=== PATIENT | female | born 2000 | race Caucasian/White ===

== ENCOUNTER 2019-08-07 18:09 | Emergency (ER) | payer BC, SELFPAY ==
[2019-08-07 18:49] VITALS: BP 108/60; PULSE 90; RESP 24; TEMP 37.7; O2SAT 100
--- NOTE | 2019-08-07 19:28 | ED.URI ---
HPI - URI/Sore Throat General Chief Complaint: Upper Respiratory Infection Stated Complaint: sore throat/ear pain Time Seen by Provider: 08/07/19 19:21 Source: patient and RN notes reviewed Mode of arrival: ambulatory Limitations: no limitations History of Present Illness HPI Narrative: Patient presents today with a 2-day history of cough with sore throat, congestion, rhinorrhea, and bilateral ear pain since last night.She currently rates her pain 8/10 and has been taking no usrd-htp-[id number] medication for pain prior to arrival.Denies any additional symptoms. MD elicited complaint: cough and sore throat Related Data Home Medications Medication Instructions Recorded Confirmed No Home Medications 08/07/19 08/07/19 Allergies Allergy/AdvReac Type Severity Reaction Status Date / Time No Known Allergies Allergy Verified 08/07/19 19:20 Review of Systems Review of Systems: Narrative: CONSTITUTIONAL: Denies body aches, fever, chills, or sweats. EYES: Denies visual changes, redness, or discharge. ENT: +Congestion, rhinorrhea, bilateral ear pain, sore throat CARDIOVASCULAR: Denies chest pain, palpitations, or edema. RESPIRATORY: Denies dyspnea.+Cough GASTROINTESTINAL: Denies abdominal pain, nausea, vomiting, or diarrhea. GENITOURINARY: Denies dysuria or hematuria. SKIN: Denies rash, itching, or wounds. MUSCULOSKELETAL: Denies back pain, joint pain, or myalgia. NEUROLOGIC: Denies headache, numbness, tingling, or weakness. PSYCH: Denies depression or anxiety. PMFSH Comments At time of signature, I have reviewed and agree with nursing past medical, surgical, social and family history unless otherwise noted. Please see nursing chart for further information. There is no relevant family history pertinent to the presenting complaint Exam Narrative: Exam Narrative: GENERAL: Well-appearing, well-nourished, and in no acute distress. HEAD: Normocephalic, atraumatic. EYES: EOMI. No redness or drainage. Conjunctivae normal. ENT: Mucous membranes pink and moist. Nares clear. No rhinorrhea. TMs normal bilaterally. Throat normal. Uvula midline. NECK: Normal AROM. Supple. No lymphadenopathy. CHEST: No respiratory distress. Clear to auscultation. HEART: Regular rate and rhythm. No murmur appreciated. Normal peripheral pulses. EXTREMITIES: Normal range of motion. No edema. SKIN: Warm, dry, no rash. NEURO: No focal deficits. Alert and oriented x3. Gait steady. PSYCH: Normal affect. No signs of depression or anxiety. Course Vital Signs Vital signs: Vital Signs Temperature 99.8 F H 08/07/19 18:49 Pulse Rate 90 08/07/19 18:49 Respiratory Rate 24 H 08/07/19 18:49 Blood Pressure 108/60 08/07/19 18:49 Pulse Oximetry 100 08/07/19 18:49 Temperature 99.8 F H 08/07/19 18:49 Pulse Rate 90 08/07/19 18:49 Respiratory Rate 24 H 08/07/19 18:49 Blood Pressure 108/60 08/07/19 18:49 Pulse Oximetry 100 08/07/19 18:49 Reviewed MDM - URI/Sore Throat Differential Diagnosis Differential diagnosis: Likely upper respiratory infection, otitis media, sinusitis, viral infection, bronchitis, influenza and other (Strep throat) Lab Data Attestation: I reviewed the patient's lab results. Labs: Strep Screen Presumptive Negative *(Reference Range: Negative)* Critical Care Time Critical Care Time Critical Care Time: No Discharge Plan Discharge Clinical Impression: Upper respiratory infection Qualifiers: URI type: unspecified URI Qualified Code(s): J06.9 - Acute upper respiratory infection, unspecified Patient Disposition: Home, Self-Care Condition: Stable Instructions: Upper Respiratory Infection (DC) Additional Instructions: Your rapid strep swab was negative today at [facility]. You will be notified in a few days if the culture comes back positive for strep, and appropriate antibiotics will be called in for you at that time. Your symptoms are likely due to a viral il
== END 2019-08-07 19:32 | disposition home or self-care (01) ==
PROVIDERS: Emergency Provider Nurse Practitioner
DX: J06.9 Acute upper respiratory infection, unspecified (principal)
CPT/HCPCS: 87081; 87880; 99203; G0463

== ENCOUNTER 2020-01-29 11:40 | Emergency (ER) | payer BC, SELFPAY ==
--- NOTE | 2020-01-29 12:06 | ED.GENADULT ---
HPI - General Adult General Stated complaint: hot & cold and migraine Time Seen by Provider: 01/29/20 12:07 Source: patient Mode of arrival: ambulatory Limitations: no limitations Related Data Home Medications Medication Instructions Recorded Confirmed No Home Medications 08/07/19 08/07/19 Allergies Allergy/AdvReac Type Severity Reaction Status Date / Time No Known Allergies Allergy Verified 08/07/19 19:20 Review of Systems Review of Systems: Narrative: CONSTITUTIONAL: Denies fever, chills, or sweats. EYES: Denies visual changes, redness, or discharge. ENT: Denies rhinorrhea, congestion, sore throat, or otalgia. CARDIOVASCULAR: Denies chest pain, palpitations, or edema. RESPIRATORY: Denies cough or dyspnea. GASTROINTESTINAL: Denies abdominal pain, nausea, vomiting, or diarrhea. GENITOURINARY: Denies dysuria or hematuria. SKIN: Denies rash or itching. MUSCULOSKELETAL: Denies back pain, joint pain, or myalgia. NEUROLOGIC: Denies headache, numbness, or weakness. PSYCHIATRIC: Denies anxiety or depression. PMFSH Comments At the time of my signature I agree with nursing past medical history, surgical, social, and family history. There is no relevant family history pertinent to the presenting complaint. Exam Narrative: Exam Narrative: GENERAL: Well-appearing, well-nourished, and in no acute distress. HEAD: Normocephalic, atraumatic. EYES: PERRLA and EOMI. ENT: Nares clear, no rhinorrhea or epistaxis. Mucous membranes moist. NECK: Supple. No lymphadenopathy CHEST: Clear to auscultation. No respiratory distress. HEART: Regular rate and rhythm. No murmur heard. Normal peripheral pulses. ABDOMEN: Soft, nontender, nondistended, normal active bowel sounds. EXTREMITIES: Normal range of motion. No edema. SKIN: Warm, dry, no rash. NEURO: No focal deficits. Alert and oriented x3. Medical Decision Making Differential Diagnosis Differential Diagnosis: Differential diagnosis: Migraine, cluster headache, tension headache, sinusitis, dental infection, TMJ problems, pseudotumor cerebri, meningitis, encephalitis, giant cell arteritis, glaucoma, subarachnoid hemorrhage, subdural or epidural hematoma, intracranial bleed or tumor. Critical Care Time Critical Care Time Critical Care Time: No Discharge Plan Discharge Prescriptions: No Action No Home Medications RF: 0
== END 2020-01-29 12:19 | disposition left against medical advice (07) ==
LOC: EXPBETH 11:48
PROVIDERS: Emergency Provider Nurse Practitioner Family
DX: Z53.21 Procedure and treatment not carried out due to patient leaving prior to being seen by health care provider (principal)
CPT/HCPCS: 99199

== ENCOUNTER 2020-03-27 08:02 | Emergency (ER) | payer BC, SELFPAY ==
[2020-03-27 08:08] VITALS: BP 90/52; PULSE 91; RESP 14; TEMP 36.7; O2SAT 100
--- NOTE | 2020-03-27 08:13 | ED.GENADULT ---
HPI - General Adult General Chief complaint: Dizziness Stated complaint: fever 100/nausea() Time Seen by Provider: 03/27/20 08:14 Source: patient Mode of arrival: ambulatory Limitations: no limitations History of Present Illness HPI narrative: 19-year-old female patient presents to the [facility] with complaints of just overall not feeling well. Patient states she has had a headache for the past 2 days along with some nausea. Patient states that 2 nights ago she was running about a 100 fever and had some chills. Patient states she has had some low back pain but states she attributes that to her . Patient is currently 23 weeks . Patient states she was having some chest pain shortness of breath last week in which she went to the ER and was evaluated for. Patient was told at that time that it appeared that her in her urine that she had a urinary tract infection was given Macrobid. Patient states she read online that Macrobid was not good for women therefore she did not take it. Patient denies any pain with urination or urgency. Patient denies any abdominal pain. Related Data Home Medications Medication Instructions Recorded Confirmed 03/27/20 Allergies Allergy/AdvReac Type Severity Reaction Status Date / Time No Known Allergies Allergy Verified 03/27/20 08:23 Review of Systems Review of Systems: Narrative: CONSTITUTIONAL: Positive fever, chills, denies sweats. EYES: Denies visual changes, redness, or discharge. ENT: Denies rhinorrhea, congestion, sore throat, or otalgia. CARDIOVASCULAR: Denies chest pain, palpitations, or edema. RESPIRATORY: Denies cough or dyspnea. GASTROINTESTINAL: Denies abdominal pain, positive nausea, denies vomiting, or diarrhea. GENITOURINARY: Denies dysuria or hematuria. SKIN: Denies rash or itching. MUSCULOSKELETAL: Positive low back pain, denies joint pain, or myalgia. NEUROLOGIC: Denies headache, numbness, or weakness. PSYCHIATRIC: Denies anxiety or depression. PMFSH Comments At the time of my signature I agree with nursing past medical history, surgical, social, and family history. There is no relevant family history pertinent to the presenting complaint. Exam Narrative: Exam Narrative: GENERAL: Well-appearing, well-nourished, and in no acute distress. HEAD: Normocephalic, atraumatic. EYES: PERRLA and EOMI. ENT: Nares clear, no rhinorrhea or epistaxis. Mucous membranes moist. Posterior pharynx with no erythema, tonsil enlargement, exudates or lesions present. Bilateral TMs are clear with no erythema or foreign bodies to the canal. NECK: Supple. No lymphadenopathy CHEST: Clear to auscultation. No respiratory distress. HEART: Regular rate and rhythm. No murmur heard. Normal peripheral pulses. ABDOMEN: Soft, nontender, nondistended, normal active bowel sounds. EXTREMITIES: Normal range of motion. No edema. SKIN: Warm, dry, no rash. NEURO: Alert and oriented x4, GCS 15. Cranial nerves II through XII grossly intact. No focal neurological deficits. Normal muscle strength and tone. Normal deep tendon reflexes. Negative Babinski, normal finger to nose coordination he had normal heel to chowdhury glide. Speech is clear. Normal gait. Negative Romberg and no pronator drift Course Vital Signs Vital signs: Vital Signs Temperature 36.7 C 03/27/20 08:08 Pulse Rate 91 03/27/20 08:08 Respiratory Rate 14 03/27/20 08:08 Blood Pressure 90/52 L 03/27/20 08:08 Pulse Oximetry 100 03/27/20 08:08 Temperature 36.7 C 03/27/20 08:08 Pulse Rate 91 03/27/20 08:08 Respiratory Rate 14 03/27/20 08:08 Blood Pressure 90/52 L 03/27/20 08:08 Pulse Oximetry 100 03/27/20 08:08 Vital signs reviewed. Medical Decision Making Differential Diagnosis Differential Diagnosis: Differential diagnosis: Allergic rhinitis, chronic sinusitis, tonsillitis, acute sinusitis, infectious mononucleosis, seasonal influenza, pertussis, diphtheria, meningococcal disea
[2020-03-27 08:14] VITALS: BP 94/54; PULSE 72
[2020-03-27 08:35] LABS: Glucose Point of Care 80 (65-105)
[2020-03-27 09:20] VITALS: BP 90/60; PULSE 72
[2020-03-27 09:25] VITALS: BP 88/60; PULSE 72
== END 2020-03-27 08:49 | disposition home or self-care (01) ==
PROVIDERS: Emergency Provider Nurse Practitioner Family
DX: O23.42 Unspecified infection of urinary tract in pregnancy, second trimester (principal); Z3A.23 23 weeks gestation of pregnancy
CPT/HCPCS: 81003; 82948; 87086; 87088; 99213; G0463

== ENCOUNTER 2021-06-15 14:26 | Emergency (ER) | payer OTHER, SELFPAY | END 2021-06-15 16:00 | disposition left against medical advice (07) | LOC: EXPBETH 14:32 | PROVIDERS: Emergency Provider Registered Nurse | DX: Z53.21 Procedure and treatment not carried out due to patient leaving prior to being seen by health care provider (principal) | CPT/HCPCS: 99199 ==

== ENCOUNTER 2023-02-26 16:17 | Emergency (ER) | payer OTHER, SELFPAY ==
--- NOTE | 2023-02-26 16:19 | ED.FEMALEGU ---
HPI - Female Genitourinary General Chief complaint: Urogenital-Female Stated complaint: poss uti Time Seen by Provider: 02/26/23 16:19 Source: patient Mode of arrival: ambulatory Limitations: no limitations History of Present Illness HPI Narrative: Chinedu is a 22-year-old female patient presenting to the clinic today with complaints of a possible urinary tract infection x1 week. She reports she is having urinary frequency, over, and clot in a send the urine. Has not taken any medications to try to treat her symptoms. Related Data Home Medications Medication Instructions Recorded Confirmed norelgestromin 150 mcg-e.estradiol 1 patch topical WEEKLY 02/26/23 02/26/23 35 mcg/24 hr weekly transderm patch (Zafemy) Allergies Allergy/AdvReac Type Severity Reaction Status Date / Time No Known Allergies Allergy Verified 02/26/23 16:29 Review of Systems Review of Systems: Pertinent positives per HPI. Patient denies any fever, chills, rash, headache, visual changes, dizziness, cough, runny nose, sore throat, shortness of breath, chest pain, palpitations, nausea, vomiting, diarrhea, constipation, abdominal pain. PMFSH Comments At the time of my signature, I reviewed and agree with the nursing past medical, surgical, social, and family history. There is no relevant family history pertinent to the patient complaint. Exam Narrative: General: Well-developed, well nourished, in no apparent distress. Head: Normocephalic, atraumatic. Cardio: Regular rate and rhythm, s1 and s2 normal, no murmur appreciated. Resp: Clear to auscultation bilaterally, no rhonchi, rales, wheezing or rubs. Abdomen: Soft, pliable, bowel sounds present in all quadrants, non-tender to palpation, no organomegly, no CVAT tenderness. Course Course Emergency Course: Portions of this record may have been created with voice recognition software. Level of Care: Express Care Visit Vital Signs Vital signs: Vital Signs Temperature 37.1 C 02/26/23 16:25 Pulse Rate 84 02/26/23 16:25 Respiratory Rate 18 02/26/23 16:25 Blood Pressure 112/60 02/26/23 16:25 Pulse Oximetry 98 02/26/23 16:25 Oxygen Delivery Room Air 02/26/23 16:25 Temperature 37.1 C 02/26/23 16:45 Pulse Rate 84 02/26/23 16:45 Respiratory Rate 18 02/26/23 16:45 Blood Pressure 112/60 02/26/23 16:45 Pulse Oximetry 98 02/26/23 16:45 Oxygen Delivery Room Air 02/26/23 16:45 Vital signs reviewed MDM - Female Genitourinary MDM Narrative Medical decision making narrative: At the time of visit patient is resting on the exam table. Urinalysis is negative for any sign of infection. Due to cloudiness in odor we will send for culture. Supportive measures were discussed with the patient she voiced understanding of the discharge instructions and agrees to treatment plan. Differential Diagnosis Differential diagnosis: Likely urinary tract infection and cystitis Lab Data Labs: Urine Glucose Negative Reference Range: Negative Urine Bilirubin Negative Reference Range: Negative Urine Ketone Negative Reference Range: Negative Urine Specific Gilchrist 1.020 Reference Range:1.001-1.035 Urine Blood Negative Reference Range: Negative * * Urine pH 7.5 Reference Range: 5.0-9.0 Urine Protein Negative Reference Range: Negative Urine Urobilinogen 1.0 Reference Range: 0.2-1.0 Urine
[2023-02-26 16:25] VITALS: BP 112/60; PULSE 84; RESP 18; TEMP 37.1; O2SAT 98
[2023-02-26 16:45] VITALS: BP 112/60; PULSE 84; RESP 18; TEMP 37.1; O2SAT 98
== END 2023-02-26 17:00 | disposition home or self-care (01) ==
PROVIDERS: Emergency Provider Nurse Practitioner Family; PCP Family Medicine
DX: R35.0 Frequency of micturition (principal); R82.998 Other abnormal findings in urine
CPT/HCPCS: 81003; 87086; 87088; 99213; G0463

== ENCOUNTER 2024-08-16 09:37 | Emergency (ER) | payer OTHER, SELFPAY ==
[2024-08-16 09:43] VITALS: BP 105/59; PULSE 76; RESP 20; TEMP 37.1; O2SAT 100
--- NOTE | 2024-08-16 09:56 | ED.URI ---
HPI - URI/Sore Throat General Chief Complaint: Upper Respiratory Infection Stated Complaint: Sore Throat Time Seen by Provider: 08/16/24 09:56 Source: patient and RN notes reviewed Mode of arrival: ambulatory Limitations: no limitations History of Present Illness HPI Narrative: 24-year-old female presents with concern for sore throat and cough. She reports that started yesterday. She denies fever body aches, chills, sweats. She has not taken any yonn-moa-eoyuvku medications for her symptoms. She believes last night. She denies runny nose, stuffy nose. MD elicited complaint: cough and sore throat Related Data Home Medications ?Medication ?Instructions ?Recorded ?Confirmed ?Last Taken ?Type norelgestromin 150 mcg-e.estradiol 1 patch topical WEEKLY 02/26/23 02/26/23 Unknown History 35 mcg/24 hr weekly transderm patch (Zafemy) Allergies Allergy/AdvReac Type Severity Reaction Status Date / Time No Known Allergies Allergy Verified 02/26/23 16:29 Review of Systems Review of Systems: CONSTITUTIONAL: Denies malaise, chills, sweats, or fever. EYES: Denies visual changes, redness, or discharge. ENT: Reports rhinorrhea, congestion, sinus pain, otalgia. Reports sore throat. CARDIOVASCULAR: Denies chest pain, palpitations, or edema. RESPIRATORY: Reports cough. Denies dyspnea. GASTROINTESTINAL: Denies abdominal pain, nausea, vomiting, diarrhea SKIN: Denies rash or itching. MUSCULOSKELETAL: Denies myalgia. NEUROLOGIC: Denies headache. All systems reviewed & are unremarkable except as noted in HPI and below PMFSH Comments At time of signature, agree with nursing past medical, surgical, social and family history. There is no relevant family history pertinent to the presenting complaint Exam Narrative: GENERAL: Well-appearing, well-nourished, and in no acute distress. HEAD: Normocephalic EYES: PERRLA, conjunctivae clear ENT: Nares clear. Mucous membranes moist. TM pearly solorio with sharp light reflex bilaterally; no tragal tenderness. Oropharynx not erythematous without lesions. Tonsils not enlarged and without exudate, no drooling, no hoarseness, no trismus, uvula midline. NECK: Supple. No lymphadenopathy CHEST: Clear to auscultation, breath sounds equal. No wheezing, rhonchi, rales, or stridor. No respiratory distress, speaks in full sentences. HEART: Regular rate and rhythm. No murmur heard. SKIN: Warm, dry, no rash. NEURO: Alert and oriented x3. PSYCH: Normal mood and affect Course Course Emergency Course: Patient is aware of diagnosis, understands and agrees to treatment plan. Anticipatory guidance given. Patient agrees to follow-up as directed and is aware of reasons to seek care at the emergency department. Portions of this record may have been created with voice recognition software Level of Care: Express [facility] [place] Visit Vital Signs Vital signs: Vital Signs Temperature 98.8 F 08/16/24 09:43 Pulse Rate 76 08/16/24 09:43 Respiratory Rate 20 08/16/24 09:43 Blood Pressure 105/59 L 08/16/24 09:43 Pulse Oximetry 100 08/16/24 09:43 Oxygen Delivery Room Air 08/16/24 09:43 Temperature 98.8 F 08/16/24 09:43 Pulse Rate 76 08/16/24 09:43 Respiratory Rate 20 08/16/24 09:43 Blood Pressure 105/59 L 08/16/24 09:43 Pulse Oximetry 100 08/16/24 09:43 Oxygen Delivery Room Air 08/16/24 09:43 Reviewed. MDM - URI/Sore Throat MDM Narrative Medical decision making narrative: Differential diagnosis considered: Aguayo virus, strep pharyngitis, allergic rhinitis, upper respiratory tract infection, sinusitis, rhinosinusitis, nasopharyngitis. viral pharyngitis, otitis media, otitis externa, pneumonia, bronchitis, viral cough syndrome, viral syndrome, and influenza. Exam findings show no acute concerns or changes; patient is non-toxic appearing and is in no distress. Patient is appropriate for outpatient treatment and follow-up. Lab Data Attestation: I reviewed the patient's lab results. Critical Care Time Critical Care Time Critical Care Time: No Discharge Plan Discharge Clinical Impression: Upper respiratory infection Patient Disposition: Home, Self-Care Condition: Stable Instructions: Upper Respiratory Infection (ED) Additional Instructions: Your rapid strep swab was negative today at [facility]. A throat culture will be sent to the laboratory for further testing. If the test is positive, you will receive a phone call within 48 hours and an appropriate antibiotic will be initiated at that time. Your symptoms are likely due to a viral illness, which is not treated with antibiotics. Viral symptoms can be present for up to a few weeks. -Alternate Tylenol and Motrin per package directions for fever or pain. -Antihistamine medication such as Benadryl at night and Zyrtec during the day can help improve symptoms. -Eat and drink things that are easy to swallow, like tea or soup, or popsicles to suck on. -Oral rinses such as: Salt water gargles and/or may use topical anesthetic (eg. Chloraseptic spray) or lozenges to relieve dryness or throat pain). -Frequent hand washing or hand tank shop supervisor is one of the best ways to prevent spread of infection. -Follow up with primary care provider in 2-3 days if condition is not improving; or seek ER visit if you have trouble breathing, cannot drink enough fluids, have muffled voice, difficulty opening your mouth, or severe swelling. Patient Language: Niuean Prescriptions: New dextromethorphan-guaifenesin [Mucinex DM] 60-1,200 mg tablet extended release 12 hr 1 tablet PO Q12H Qty: 12 0RF No Action Zafemy 150-35 mcg/24 hr patch weekly 1 patch topical WEEKLY Follow-up/Referrals: PHYSICIAN NOT ON STAFF,NONSTAFF [Primary Care Provider] - Stand Alone Forms: Work/School Release IP Time of Disposition: 10:06
[2024-08-16 10:08] LABS: EDSTREPNEGPOS1 Negative (Negative)
--- OUTSIDE RECORDS SUMMARY | 2024-08-16 10:28 | XMS_ITS | Clinical Summary ---
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 Atrial septal defect 05/23/2014 Vaginal delivery 37 weeks gestation of Encounters Date Type Department Care Team Description 08/09/2024 2:30 PM LUMBER DRIVER - 08/09/2024 4:58 PM LUMBER DRIVER Emergency [facility] Emergency Department [address] [place] [address] Migraine without status migrainosus, not intractable, unspecified migraine type (Primary Dx) Discharge Disposition: Discharge to home or self care from Last 3 Months Immunizations Immunization Administration Dates Next Due MMR 07/02/2018(Deferred: Other - see comments) Tdap 07/02/2018 Medical History Medical History Date Comments Urinary tract infection Family History Medical History Relation Name Comments Hyperlipidemia Father Hypertension Father Relation Name Status Comments Father Social History Tobacco Use Types Packs/Day Years Used Date Smoking Tobacco: Former Cigarettes Q uit: 09/11/2019 Smokeless Tobacco: Never Alcohol Use Standard Drinks/Week Comments No 0 (1 standard drink = 0.6 oz pur e alcohol) PHQ-2 Answer Date Recorded PHQ-2 Total Score (If total score is 3 or more points, staff should administer the PHQ-9) 0 12/27/2020 Comments Unknown Sex and Gender Information Value Date Recorded Sex Assigned at Not on file Legal Sex Female 11:37 PM LUMBER DRIVER Gender Identity Not on file Sexual Orientation Not on file Obstetrics History Para Term AB IAB SAB Ectopic Multiple Livin g Live Births 3 2 2 1 1 0 2 2 Date Outcome GA Total Labor Labor/2nd/3rd Weight Sex Type Anes PTL Madai A1 A5 Name Clin 8 SAB 2018 Term 37w 5d 10h 51m 8h 41m/2h 01m/0h 09m 2.925 kg (6 lb 7.2 oz) F Vag-S pont Epidur al N Livin g 8 8 DONNA ,GIRL DAKOT A Zaid Donahue MD Complications:Rupture of Mem branes > 18 hours Delivery Location:[facility] Fac[facility] ([facility]) 2020 Term 39w 2d 6h 38m 5h 05m/1h 24m/0h 09m 3.667 kg (8 lb 1.4 oz) F Vag-S pont Epidur al N Livin g 8 9 DONNA ,GIRL DAKOT A Maximus Barahona MD Complications:None Delivery Location:[facility] ([facility]) Last Filed Vital Signs Vital Sign Reading Time Taken Comments Blood Pressure 105/68 08/09/2024 1:55 PM LUMBER DRIVER Pulse 66 08/09/2024 1:55 PM LUMBER DRIVER Temperature 36.7 C (98 F) 08/09/2024 1:55 PM LUMBER DRIVER Respiratory Rate 16 08/09/2024 1:55 PM LUMBER DRIVER Oxygen Saturation 100% 08/09/2024 1:55 PM LUMBER DRIVER Inhaled Oxygen Concentration - - Weight 53.1 kg (117 lb) 08/09/2024 1:55 PM LUMBER DRIVER Height 152.4 cm (5') 08/09/2024 1:55 PM LUMBER DRIVER Body Mass Index 22.85 08/09/2024 1:55 PM LUMBER DRIVER Plan of Treatment Health Maintenance Due Date Last Done Comments Cervical Cancer Screening 1999 Regular Well Visit/Exam 18-64 2017 Depression Screening 12/27/2021 12/27/2020 Influenza Vaccine (#1) 2024 DTaP/Tdap/Td Vaccine (9 - Td or Tdap) 06/10/2030 06/10/2020, 07/02/2018, 01/13/2013, Additional history exists Pneumococcal vaccine <65 Aged Out 09/16/2000 No longer eligible based on patient's age to complete this topic Hepatitis B Screening Completed 03/28/2003 , 1999, 1999 Varicella Vaccines Completed 01/29/2014, 0 01/13/2013, 09/16/2000 HPV Vaccines Completed 01/06/2016, 01/13/2013 Hepatitis C Screening Completed 12/17/2017 Procedures Procedure Name Priority Date/Time Associated Diagnosis Comments POCT HCG, URINE Routine 08/09/2024 3:44 PM LUMBER DRIVER ECG 12-LEAD STAT 08/09/2024 2:51 PM LUMBER DRIVER EGFR STAT 08/09/2024 2:14 PM LUMBER DRIVER DIFFERENTIAL AUTO STAT 08/09/2024 2:1 4 PM LUMBER DRIVER TROPONIN T HIGH-SENSITIVITY SERIES (BASELINE, 2HR, 4HR, 6HR) STAT 08/09/2024 2:14 PM LUMBER DRIVER APTT STAT 08/09/2024 2:14 PM LUMBER DRIVER PROTIME-INR STAT 08/09/2024 2:14 PM LUMBER DRIVER COMPREHENSIVE METABOLIC PANEL STAT 08/09/2024 2:14 PM LUMBER DRIVER CBC WITH AUTO DIFFERENTIAL STAT 08/09/2024 2:[address] STROKE PROTOCOL WO CONTRAST Critical/Life-T hreatening 08/09/2024 2:12 PM LUMBER DRIVER HEPATITIS C ANTIBODY Routine 12/17/2017 12:26 PM CDT Encounter for supervision of other normal in first trimester from Last 3 Months or Most Recently Relevant to Health Maintenance Results * (ABNORMAL) POCT hCG, urine (08/09/2024 3:44 PM LUMBER DRIVER) HCG, ur, POC Negative Negative Lot Number [id number] QC Backgroud Clear Acceptable QC Control Line Acceptable Urine 08/09/2024 3:44 PM LUMBER DRIVER Quynh LOYD POINT OF CARE TEST ORDERA BLES Final Result * ECG 12 lead (08/09/2024 2:51 PM LUMBER DRIVER) 08/09/2024 2:51 PM LUMBER DRIVER Narrative [facility] - 08/09/2024 7:56 PM LUMBER DRIVER Vent Rate: 53 bpm RR Interval: 1119 msec FL Interval: 151 msec QRS Duration: 81 msec QT Interval: 420 msec QTC Interval: 403 msec P-R-T [place]: 54 - 83 - 71 degrees IMPRESSION: SINUS BRADYCARDIA WITH SINUS ARRHYTHMIA BORDERLINE ECG Electronically Signed By: Cesar Newton MD us Quynh LOYD ECG ORDERABLES Final Res ult [facility] * Troponin T high-sensitivity series (baseline, 2hr, 4hr, 6hr) (08/09/2024 2:14 PM LUMBER DRIVER) Trop T hs <6 <=14 ng/L Comment: Interpretive Data For further hscTnT resources including the diagnostic algorithm and an aid in interpretation, copy and paste this link: https://nrl.testcatalog.org/show/hsTrop Current Interpretive Data last revised 2020. Blood 08/09/2024 2:14 PM LUMBER DRIVER 08/09/2024 2:19 PM LUMBER DRIVER Quynh LOYD LAB BLOOD ORDERABLES Trudy l Result EVIN ANDREWS ([place]) 1 [facility] [email or web address] [address] * eGFR (08/09/2024 2:14 PM LUMBER DRIVER) eGFR >90 >=60 mL/min/1. 73 m2 Comment: Interpretive Data Reference Interval Normal >/= 90 mL/min/1.73m2 Mildly decreased* 60 - 89 mL/min/1.73m2 Mildly to moderately decreased 45 - 59 mL/min/1.73m2 Moderately to severely decreased 30 - 44 mL/min/1.73m2 Severely decreased 15 - 29 mL/min/1.73m2 Kidney Failure < 15 mL/min/1.73m2 *Relative to young adult level Estimated glomerular filtration rate is determined by the 2020 CKD-EPI equation recommended by the National Kidney Foundation (A Unifying Approach to GFR Estimation: Recommendations of the NKF-ASK Task Force on Reassessing the Inclusion of Race in Diagnosing Kidney Disease, JASN 2020). The CKD-EPI equation should not be used for patients with unstable renal function and has not been validated in children and those over 70. Current interpretive data was last reviewed 2021. Blood 08/09/2024 2:14 PM LUMBER DRIVER 08/09/2024 2:19 PM LUMBER DRIVER Quynh LOYD LAB BLOOD ORDERABLES Trudy l Result EVIN ANDREWS ([place]) 1 [facility] [email or web address] [address] * (ABNORMAL) Differential, auto (08/09/2024 2:14 PM LUMBER DRIVER) Neutrophil abs 5.0 1.5 - 6.5 K/cumm Imm gran abs 0.0 0.0 - 0.1 K/cumm EVIN JULIANA ([place]) Lymphocyte abs 2.7 0.8 - 3.3 K/cumm [facility] ([place]) Monocyte abs 0.5 0.2 - 0.8 K/cumm [facility] ([place]) Eosinophil abs 0.2 0.0 - 0.5 K/cumm [facility] ([place]) Basophil abs 0.2(H) 0.0 - 0.1 K/cumm [facility] ([place]) Neutrophil pct 58.5 % [facility] ([place]) Comment: Interpretive Data Percent cell count reference ranges are not reported, since discordance with absolute values may lead to misinterpretation of CBC data. Current Interpretive Data was last revised on 2017. Imm gran pct 0.2 % [facility] ([place]) Comment: Interpretive Data Percent cell count reference ranges are not reported, since discordance with absolute values may lead to misinterpretation of CBC data. Current Interpretive Data was last revised on 2017. Lymphocyte pct 31.6 % [facility] ([place]) Comment: Interpretive Data Percent cell count reference ranges are not reported, since discordance with absolute values may lead to misinterpretation of CBC data. Current Interpretive Data was last revised on 2017. Monocyte pct 5.6 % [facility] ([place]) Comment: Interpretive Data Percent cell count reference ranges are not reported, since discordance with absolute values may lead to misinterpretation of CBC data. Current Interpretive Data was last revised on 2017. Eosinophil pct 2.4 % [facility] ([place]) Comment: Interpretive Data Percent cell count reference ranges are not reported, since discordance with absolute values may lead to misinterpretation of CBC data. Current Interpretive Data was last revised on 2017. Basophil pct 1.7 % [facility] ([place]) Comment: Interpretive Data Percent cell count reference ranges are not reported, since discordance with absolute values may lead to misinterpretation of CBC data. Current Interpretive Data was last revised on 2017. Blood 08/09/2024 2:14 PM LUMBER DRIVER 08/09/2024 2:19 PM LUMBER DRIVER Quynh LOYD LAB BLOOD ORDERABLES Trudy l Result [facility] ([place]) 1 [facility] [place] [address] * CBC with auto differential (08/09/2024 2:14 PM LUMBER DRIVER) Pathologist [facility] WBC 8.6 3.8 - 9.9 K/cumm Hgb 12.8 11.9 - 15.5 g/dL [facility] ([place]) Hct 37.1 35.6 - 45.5 % [facility] ([place]) Plt 322 150 - 400 K/cumm [facility] ([place]) MPV 9.2 9.1 - 12.3 fL [facility] ([place]) RBC 4.10 3.90 - 5.20 M/cumm [facility] ([place]) MCV 90.5 81.3 - 96.4 fL [facility] ([place]) MCH 31.2 27.1 - 33.3 pg [facility] ([place]) MCHC 34.5 32.3 - 35.7 g/dL [facility] ([place]) RDW CV 11.7 11.1 - 14.9 % [facility] ([place]) RDW SD 38.7 35.7 - 48.1 fL [facility] ([place]) NRBC abs 0.00 0.00 - 0.01 K/cumm [facility] ([place]) Blood Venous blood specimen / Unknown 08/09/2024 2:14 PM LUMBER DRIVER 08/09/2024 2:19 PM LUMBER DRIVER Narrative [facility] ([place] - 08/09/2024 2:20 PM LUMBER DRIVER Potential Stroke Patient us Quynh LOYD LAB BLOOD ORDERABLES Trudy l Result EVIN ANDREWS ([place]) 1 [facility] [place] [address] * aPTT (08/09/2024 2:14 PM LUMBER DRIVER) [facility] aPTT 30 28 - 38 sec [facility] ([place]) Comment: Interpretive Data Heparin therapeutic range: 66.0 - 100.0 seconds. Range based on correlation with therapeutic heparin activity range of 0.3 - 0.7 Units/mL. Current interpretive data was last revised on 2023. Blood Venous blood specimen / Unknown 08/09/2024 2:14 PM LUMBER DRIVER 08/09/2024 2:19 PM LUMBER DRIVER Narrative [facility] ([place]) - 08/09/2024 2:31 PM LUMBER DRIVER Potential stroke patient. Quynh LOYD LAB BLOOD ORDERABLES Trudy l Result Performing Organization Address [facility] Co de Phone Number [facility] ([place]) 1 [facility] [email or web address] [address] * (ABNORMAL) Protime-INR (08/09/2024 2:14 PM LUMBER DRIVER) Pathologist [facility] PT 13.1(H) 9.7 - 13.0 sec [facility] ([place]) INR 1.21(H) 0.90 - 1.20 [facility] ([place]) Comment: Interpretive data Oral anticoagulant therapeutic ranges: Venous thromboembolism prophylaxis or treatment: 2.0-3.0 CARDIOLOGY Standard range: 2.0-3.0 High-intensity range: 2.5-3.5 Refer to indication-specific guidelines for appropriate target ranges for prosthetic heart valve replacement. Current interpretive data was last revised on 2019. Blood 08/09/2024 2:14 PM LUMBER DRIVER 08/09/2024 2:19 PM LUMBER DRIVER Quynh LOYD LAB BLOOD ORDERABLES Trudy l Result Performing Organization Address [facility] Co de Phone Number [facility] ([place]) 1 [facility] [address] * Comprehensive metabolic panel (08/09/2024 2:14 PM LUMBER DRIVER) Sodium 135 135 - 145 mmol/L Potassium, pl 4.4 3.3 - 4.9 mmol/L [facility] ([place]) Chloride 100 97 - 110 mmol/L [facility] ([place]) CO2 24 22 - 32 mmol/L [facility] ([place]) Anion gap 11 2 - 15 mmol/L [facility] ([place]) BUN 12 6 - 25 mg/dL [facility] ([place]) Creatinine 0.81 0.60 - 1.10 mg/dL [facility] ([place]) Glucose 102 70 - 199 mg/dL [facility] ([place]) Comment: Interpretive Data Fasting glucose >/= 126 mg/dl is diagnostic for diabetes. Fasting is defined as no caloric intake for at least 8 hours. Fasting glucose between 100 mg/dl to 125 mg/dl is diagnostic of prediabetes. In a patient with classic symptoms of hyperglycemia or hyperglycemic crisis, a random glucose >/= 200 mg/dl is diagnostic for diabetes. In the absence of unequivocal hyperglycemia, results should be confirmed by repeat testing. The classification and Diagnosis of Diabetes Diabetes Care 2021; 46: S19-S40. Current interpretive data was last revised 2022. Calcium 9.7 8.5 - 10.3 mg/dL [facility] ([place]) Bilirubin, total 0.5 0.1 - 1.2 mg/dL [facility] ([place]) Protein, pl 7.3 6.5 - 8.5 g/dL [facility] ([place]) Albumin 4.7 3.5 - 5.0 g/dL [facility] ([place]) Alk phos 59 40 - 130 Units/L [facility] ([place]) ALT 17 7 - 45 Units/L [facility] ([place]) AST 16 10 - 45 Units/L [facility] ([place]) Blood Venous blood specimen / Unknown 08/09/2024 2:14 PM LUMBER DRIVER 08/09/2024 2:19 PM LUMBER DRIVER Narrative [facility] ([place]) - 08/09/2024 2:45 PM LUMBER DRIVER Potential Stroke Patient us Quynh LOYD LAB BLOOD ORDERABLES Trudy green Result [facility] ([place]) 1 [facility] [place] [address] * CT Stroke Head WO Contrast (08/09/2024 2:12 PM LUMBER DRIVER) Anatomical Region Laterality Modality Head N/A Computed Tomogra phy 08/09/2024 2:16 PM LUMBER DRIVER Narrative 08/09/2024 2:19 PM LUMBER DRIVER EXAM DESCRIPTION: CT STROKE HEAD WO CONTRAST REASON FOR STUDY: Stroke, follow up, Stroke Last known well at 0700, right hand numbness, altered mental status, dizziness TECHNIQUE: Axial images acquired through the brain without intravenous contrast. Images stored on PACS. Automated exposure control was used as a dose optimization technique for this examination. COMPARISON: 12/20/2019 FINDINGS: BRAIN: There is no definite evidence of acute intracranial hemorrhage. There is no definite evidence of an extra-axial fluid collection. There is no significant midline shift or focal mass effect. The ventricles are stable in size and position. CALVARIUM: No fracture. SINUSES/MASTOIDS: The visualized paranasal sinuses and bilateral mastoid air cells are grossly clear. ORBITS: No significant abnormality. OTHER: No other significant abnormality. IMPRESSION: No definite evidence of acute intracranial hemorrhage. If there is continued clinical concern for acute ischemia, then further evaluation with MRI is recommended. Findings were discussed with EVERT Farrell, by Dr. Lee at 14:19 hours on 08/09/2024 . THIS IS AN ELECTRONICALLY VERIFIED FINAL REPORT 08/09/2024 2:19 PM - Electronically signed by Cristino Lee D.O. PS: PS Report ID: [id number] Reading Location: [id number] Procedure Note Cristino Lee, DO - 08/09/2024 EXAM DESCRIPTION: CT STROKE HEAD WO CONTRAST REASON FOR STUDY: Stroke, follow up, Stroke Last known well at 0700, right hand numbness, altered mental status,dizziness TECHNIQUE: Axial images acquired through the brain without intravenous contrast. Images stored on PACS. Automated exposure control was used asa dose optimization technique for this examination. COMPARISON: 12/20/2019 FINDINGS: BRAIN: There is no definite evidence of acute intracranial hemorrhage.There is no definite evidence of an extra-axial fluid collection. There is no significant midline shift or focal mass effect. The ventricles are stablein size and position. CALVARIUM: No fracture. SINUSES/MASTOIDS: The visualized paranasal sinuses and bilateral mastoidair cells are grossly clear. ORBITS: No significant abnormality. OTHER: No other significant abnormality. IMPRESSION: No definite evidence of acute intracranial hemorrhage. If there iscontinued clinical concern for acute ischemia, then further evaluation with MRI is recommended. Findings were discussed with EVERT Farrell, by Dr. Lee at14:19 hours on 08/09/2024 . THIS IS AN ELECTRONICALLY VERIFIED FINAL REPORT 08/09/2024 2:19 PM - Electronically signed by Cristino Lee D.O. PS: PS Report ID: [id number] Reading Location: [place] [address] [address]h [address]YD IMG CT PROCEDURES Final R esult * Hepatitis C antibody (12/17/2017 12:26 PM CDT) Hep C Ab Negative Negative EVIN ANDREWS ([place]) Comment:Testing performed by : [facility], [address] [place] [address], [facility] Blood specimen (specimen) 12/17/2017 12:26 PM CDT 12/17/2017 5:49 PM CDT Narrative [facility] ([place]) - 12/17/2017 6:57 PM CDT us Anne Maharaj NP LAB MICROBIOLOGY - GENERAL ORDER JESUS Final Result [facility] ANDRE[facility] ([place]) 1 [facility] [place] [address] from Last 3 Months or Most Recently Relevant to Health Maintenance Insurance ID[facility] [employer] [facility] PL[facility] H[facility]/PPO Address: [address] [address] [place] [address] [employer] Advance Directives For more information, please contact: [phone] * Full Code (Latest Code Status on File) Date Activated Date Inactivated Comments 12/27/2020 7:21 PM 12/28/2020 10:48 PM * Full Code Date Activated Date Inactivated Comments 07/08/2020 6:35 PM 07/10/2020 3:42 PM * Full Code Date Activated Date Inactivated Comments 07/08/2020 7:01 AM 07/08/2020 6:35 PM Full CPR in case of cardiopulmonary arrest * Full Code Date Activated Date Inactivated Comments 06/29/2018 8:20 AM 07/02/2018 3:53 PM Full CPR in case of cardiopulmonary arrest Care Teams Bandsaw Operator Relationship Specialty Start Date End Date Unknown, Notinfile PCP - General 08/09/24
--- OUTSIDE RECORDS SUMMARY | 2024-08-16 10:28 | XMS_ITS | Data Portability ---
Author Organization SHARLA Sherwin MAYO Address [address] [place] [address] Care Team Providers Care Credit Review Officer Name Role Phone JARAD CHANDRA Horticultural Farm Manager JC GONZALEZ Primary Care Provider Unavaila ble Assessment Encounter Date Assessment Date Assessment LastModified by Organization Details LastModified Time 05/26/2024 05/26/2024 Pain management - request records [address], [place] [email or web address] Not available 06/05/2024 15:17:54 Plan of Treatment Reminders Order Date Submit Date Provider Last Modified By Organization Details Last Modified Time Details Appointments PHONE VISIT 15 2024 10:00A Acacia GONZALEZ , DO Not available Not available Not available Lab drug screen, 14 drugs (detectim ed), urine 2024 025 [facility], [address] [facility], [address], [place], [address], 07/28/2024 06:21:18 TSH, ultra-sen sitive, serum 2023 024 [facility], [address], [address], [place], [address], 05/27/2024 09:11:33 CMP, serum or plasma 2023 024 [facility], [address], [address], [place], [address], 05/27/2024 06:20:11 vitamin D, 25-hydrox y, total, serum 2023 024 [facility], [facility], [address], [place], [address], 05/27/2024 09:11:36 cobalamin and folate panel, serum 2023 024 [facility], [address] [place], [place] [address]zen[address], [address], [place], [address], 05/27/2024 09:11:34 CBC w/ auto diff 2023 024 [facility], [address] [place], [place] [address], [address], [place], [address], 04/29/2024 06:18:04 PT/PTT, plasma 2023 024 [facility], [address] [place], [place] [address], [address], [place], [address], 04/29/2024 08:26:[address] referral 2023 024 PALAK Bueno MD, [address], [address], 08/14/2024 14:38:32 Procedures None recorded. Surgeries None recorded. Imaging None recorded. Medication Orders sumatript an 25 mg tablet 2024 025 [email or web address] 1 [id number], [address] , [place], [place], [id number], 08/15/2024 15:11:17 propranol ol ER 80 mg capsule,2 4 hr,extend ed release 2024 025 [id number], [address], [place], [place], [id number], 06/23/2024 13:41:09 propranol ol ER 60 mg capsule,2 4 hr,extend ed release 2023 025 [facility] #56294, [address], [place], [place], [id number], 06/23/2024 13:41:09 epinephri ne 0.3 mg/0.3 mL injection , auto-inje ctor 2023 024 [facility] #93851, [address], [place], [place], [id number], 04/28/2024 09:35:03 amitripty line 10 mg tablet 2023 024 [facility] #[id number], [address], [place], [place], [id number], 06/05/2024 15:09:09 Patient TargetsNo targets recorded. Patient Instructions Encounter Date Encounter Id Patient Instructions Last Modified By Organization Details Last Modified Time 04/28/2024 [id number] I was present in the clinic to discuss this patient at the time of the visit. I agree with the documented assessment and plan Laureen Matthew MD [email or web address] Not available 04/28/2024 09:57:31 05/26/2024 [id number] I was present in the clinic to discuss this patient at the time of the visit. I agree with the documented assessment and plan Meche Causey MD [email or web address] Not available 05/26/2024 09:48:38 06/23/2024 [id number] migraine aura without a headache: care instructions [email or web address] Not available 06/23/2024 13:41:04 06/30/2024 [id number] Attending Physician Attestation I did not personally see or examine the patient with the resident. I was physically present to provide indirect supervision through entire encounter. I have reviewed the documentation and agree with the history, physical findings, work-up, and medical decision making as recorded. Roseann Mooney MD [email or web address] Not available 06/30/2024 10:40:36 Reason for Referral Neurologist Referral for Duglas michelle with aura Referring Physician: Jc Gonzalez, Drilling Supervisor, Encounter Date: 05/26/2024 Results Created Date Observation Date Name Description Value Unit Range Abnormal Flag Note LastModifiedBy Organization Detail LastModifiedTime 04/28/20 24 04/28/2024 CBC WITH DIFFE RENTI AL/PL ATELE T WBC 7.2 x10e3 /uL 3.4-10 .8 Not Available [facility] [address] [place], [address], 04/29/2024 06:18:04 04/28/20 24 04/28/2024 CBC WITH DIFFE RENTI AL/PL ATELE T RBC 4.45 x10e6 /uL 3.77-5 .28 Not Available [facility] [address] [place], [address], 04/29/2024 06:18:04 04/28/20 24 04/28/2024 CBC WITH DIFFE RENTI AL/PL ATELE T hemoglobin 13.5 g/dL 11.1-1 5.9 Not Available [facility] [address] [place], [address], 04/29/2024 06:18:04 04/28/20 24 04/28/2024 CBC WITH DIFFE RENTI AL/PL ATELE T hematocrit 41.5 % 34.0-4 6.6 Not Available [facility] [address] [place], [address], 04/29/2024 06:18:04 04/28/20 24 04/28/2024 CBC WITH DIFFE RENTI AL/PL ATELE T MCV 93 fL 79-97 Not Available [facility] [address] [place], [address], 04/29/2024 06:18:04 04/28/20 24 04/28/2024 CBC WITH DIFFE RENTI AL/PL ATELE T MCH 30.3 pg 26.6-3 3.0 Not Available [facility] [address] [place], [address], 04/29/2024 06:18:04 04/28/20 24 04/28/2024 CBC WITH DIFFE RENTI AL/PL ATELE T MCHC 32.5 g/dL 31.5-3 5.7 Not Available [facility] [address] [place], [address], 04/29/2024 06:18:04 04/28/20 24 04/28/2024 CBC WITH DIFFE RENTI AL/PL ATELE T RDW 12.9 % 11.5-1 4.5 Not Available [facility] [address] [place], [address], 04/29/2024 06:18:04 04/28/20 24 04/28/2024 CBC WITH DIFFE RENTI AL/PL ATELE T platelets 372 x10e3 /uL 150-45 0 Not Available [facility] [address] [place], [address], 04/29/2024 06:18:04 04/28/20 24 04/28/2024 CBC WITH DIFFE RENTI AL/PL ATELE T neutrophils 61 % notest b. Not Available [facility] [address] [place], [address], 04/29/2024 06:18:04 04/28/20 24 04/28/2024 CBC WITH DIFFE RENTI AL/PL ATELE T lymphs 31 % notest b. Not Available [facility] [address] [place], [address], 04/29/2024 06:18:04 04/28/20 24 04/28/2024 CBC WITH DIFFE RENTI AL/PL ATELE T monocytes 5 % notest b. Not Available [facility] [address] [place], [address], 04/29/2024 06:18:04 04/28/20 24 04/28/2024 CBC WITH DIFFE RENTI AL/PL ATELE T eos 2 % notest b. Not Available [facility] [address] [place], [address], 04/29/2024 06:18:04 04/28/20 24 04/28/2024 CBC WITH DIFFE RENTI AL/PL ATELE T basos 2 % notest b. Not Available [facility] [address] [place], [address], 04/29/2024 06:18:04 04/28/20 24 04/28/2024 CBC WITH DIFFE RENTI AL/PL ATELE T neutrophils (absolute) 4.3 x10e3 /uL 1.4-7. 0 Not Available [facility] [address] [place], [address], 04/29/2024 06:18:04 04/28/20 24 04/28/2024 CBC WITH DIFFE RENTI AL/PL ATELE T lymphs (absolute) 2.2 x10e3 /uL 0.7-3. 1 Not Available [facility] [address] [place], [address], 04/29/2024 06:18:04 04/28/20 24 04/28/2024 CBC WITH DIFFE RENTI AL/PL ATELE T monocytes(ab solute) 0.4 x10e3 /uL 0.1-0. 9 Not Available [facility] [address] [place], [address], 04/29/2024 06:18:04 04/28/20 24 04/28/2024 CBC WITH DIFFE RENTI AL/PL ATELE T eos (absolute) 0.1 x10e3 /uL 0.0-0. 4 Not Available [facility] [address] [place], [address], 04/29/2024 06:18:04 04/28/20 24 04/28/2024 CBC WITH DIFFE RENTI AL/PL ATELE T baso (absolute) 0.1 x10e3 /uL 0.0-0. 2 Not Available [facility] [address] [place], [address], 04/29/2024 06:18:04 04/28/20 24 04/28/2024 CBC WITH DIFFE RENTI AL/PL ATELE T immature granulocytes 0.1 % notest b. Not Available [facility] [address] [place], [address], 04/29/2024 06:18:04 04/28/20 24 04/28/2024 CBC WITH DIFFE RENTI AL/PL ATELE T immature grans (abs) 0.0 x10e3 /uL 0.0-0. 1 Not Available [facility] [address] [place], [address], 04/29/2024 06:18:04 04/28/20 24 04/28/2024 CBC WITH DIFFE RENTI AL/PL ATELE T NRBC 0 % 0-0 Not Available [facility] [address] [place], [address], 04/29/2024 06:18:04 04/28/20 24 04/29/2024 PT AND PTT INR 1.1 0.9-1. 2 Refer ence inter buffy is for non-a ntico agula hemalatha patie nts. Sugge sted INR thera peuti c range for Vitam in K antag onist thera py: Stand tito Dose (mode rate inten sity thera peuti c range ): 2.0 - 3.0 Highe r inten sity thera peuti c range 2.5 - 3.5 Not Available [facility] ([facility]) [address] [facility], [place], [address], 04/29/2024 08:26:09 04/28/20 24 04/29/2024 PT AND PTT prothrombin time 12.2 sec 9.1-12 .0 above high normal Not Available [facility] ([facility]) [address] [facility], [place], [address], 04/29/2024 08:26:09 04/28/20 24 04/29/2024 PT AND PTT APTT 29 sec 24-33 This test has not been valid ated for monit oring unfra ction ated hepar in thera py. aPTT- based thera peuti c range s for unfra ction ated hepar in thera py have not been estab lishe d. For gener al guide lines on Hepar in monit oring , refer to the [facility]. Not Available [facility] ([facility]) [address] [facility], [place], [address], 04/29/2024 08:26:09 04/28/20 24 04/28/2024 HCV RNA BY PCR, QN RFX LEATHA test information: COMMEN T The quant itati ve range of this assay is 15 IU/mL to 100 silvia on IU/mL . Not Available [facility] ([facility]) [address] [facility], [place], [address], 05/01/2024 15:09:52 04/28/20 24 04/29/2024 HCV RNA BY PCR, QN RFX LEATHA hepatitis C quantitation HCV NOT DETECT ED Not Available [facility] ([facility]) [address] [facility], [place], [address], 05/01/2024 15:09:52 04/28/20 24 04/29/2024 HCV RNA BY PCR, QN RFX LEATHA HCV log10 TNP log10 _IU/m L Unabl e to calcu late resul t since non-n umeri c resul t obtai jackie for compo nent test. Not Available [facility] ([facility]) [address] [facility], [place], [address], 05/01/2024 15:09:52 04/28/20 24 04/29/2024 HCV RNA BY PCR, QN RFX LEATHA HCV genotype TNP Not indic ated Not Available [facility] ([facility]) [address] [facility], [place], [address], 05/01/2024 15:09:52 05/26/20 24 05/26/2024 COMP. METAB OLIC PANEL (14) glucose 88 mg/dL 70-99 Not Available [facility] Department [address] [place] [address], [address], 05/27/2024 06:20:11 05/26/20 24 05/26/2024 COMP. METAB OLIC PANEL (14) BUN 14 mg/dL 6-20 Not Available [facility] [address] [place] [address], [address], 05/27/2024 06:20:11 05/26/20 24 05/26/2024 COMP. METAB OLIC PANEL (14) creatinine 0.66 mg/dL 0.76-1 .27 below low normal Not Available [facility] [address] [place] [address], [address], 05/27/2024 06:20:11 05/26/20 24 05/26/2024 COMP. METAB OLIC PANEL (14) eGFR 125 >=60 Units for eGFR value s are mL/mi n/1.7 3 The eGFR Calcu latio n has not been valid ated for patie nts under the age of 18. If test resul ts are displ ayed for a patie nt under the age of 18, disre wendi that value . Not Available [facility] [address] [place] [address], [address], 05/27/2024 06:20:11 05/26/20 24 05/26/2024 COMP. METAB OLIC PANEL (14) BUN/creatini ne ratio 04 03- Not Available [facility] Department [address] [place] [address], [address], 05/27/2024 06:20:11 05/26/20 24 05/26/2024 COMP. METAB OLIC PANEL (14) sodium 141 mmol/ L 134-14 4 Not Available [facility] [address] [place], [address], 05/27/2024 06:20:11 05/26/20 24 05/26/2024 COMP. METAB OLIC PANEL (14) potassium 4.5 mmol/ L 3.5-5. 2 Not Available [facility] [address] [place], [address], 05/27/2024 06:20:11 05/26/20 24 05/26/2024 COMP. METAB OLIC PANEL (14) chloride 103 mmol/ L 96-106 Not Available [facility] [address] [place] [address], [address], 05/27/2024 06:20:11 05/26/20 24 05/26/2024 COMP. METAB OLIC PANEL (14) carbon dioxide, total 27 mmol/ L 20-29 Not Available [facility] Department [address] [place] [address], [address], 05/27/2024 06:20:11 05/26/20 24 05/26/2024 COMP. METAB OLIC PANEL (14) calcium 10.0 mg/dL 8.7-10 .2 Not Available [facility] [address] [place], [address], 05/27/2024 06:20:11 05/26/20 24 05/26/2024 COMP. METAB OLIC PANEL (14) protein, total 7.1 g/dL 6.0-8. 5 Not Available [facility] [address] [place], [address], 05/27/2024 06:20:11 05/26/20 24 05/26/2024 COMP. METAB OLIC PANEL (14) albumin 4.6 g/dL 4.0-5. 0 Not Available [facility] Department [address] [place] [address], [address], 05/27/2024 06:20:11 05/26/20 24 05/26/2024 COMP. METAB OLIC PANEL (14) globulin, total 2.5 g/dL 1.5-4. 5 Not Available [facility] Department [address] [place] [address], [address], 05/27/2024 06:20:11 05/26/20 24 05/26/2024 COMP. METAB OLIC PANEL (14) A/G ratio 1.8 1.2-2. 2 Not Available [facility] Department [address] [place] [address], [address], 05/27/2024 06:20:11 05/26/20 24 05/26/2024 COMP. METAB OLIC PANEL (14) bilirubin, total 0.4 mg/dL 0.0-1. 2 Not Available [facility] Department [address] [place] [address], [address], 05/27/2024 06:20:11 05/26/20 24 05/26/2024 COMP. METAB OLIC PANEL (14) alkaline phosphatase 68 IU/L 44-121 Not Available [facility] Department [address] [place] [address], [address], 05/27/2024 06:20:11 05/26/20 24 05/26/2024 COMP. METAB OLIC PANEL (14) AST (SGOT) 20 IU/L 0-40 Not Available [facility] Department [address] [place] [address], [address], 05/27/2024 06:20:11 05/26/20 24 05/26/2024 COMP. METAB OLIC PANEL (14) ALT (SGPT) 25 IU/L 0-32 Not Available [facility] Department [address] [place] [address], [address], 05/27/2024 06:20:11 05/26/20 24 05/27/2024 TSH RFX ON ABNOR MAL TO FREE T4 TSH 0.401 uIU/m L 0.450- 4.500 below low normal Not Available [facility] ([facility]) [address] [facility], [place], [address], 05/27/2024 09:11:33 05/26/20 24 05/27/2024 VITAM IN B12 AND FOLAT E vitamin B12 815 pg/mL 232-12 45 Not Available [facility] ([facility]) [address] [facility], [place], [address], 05/27/2024 09:11:34 05/26/20 24 05/27/2024 VITAM IN B12 AND FOLAT E folate (folic acid), serum 5.9 NG/mL >3.0 A serum folat e porsha ntrat ion of less than 3.1 ng/mL is consi dered to repre sent clini rodrigo defic iency . Not Available [facility] ([facility]) [address] [facility], [place], [address], 05/27/2024 09:11:34 05/26/20 24 05/27/2024 T4F T4,free (direct) 1.24 NG/dL 0.82-1 .77 Not Available [facility] ([facility]) [address] [facility], [place], [address], 05/27/2024 09:11:35 05/26/20 24 05/27/2024 VITAM IN D, 25-HY DROXY vitamin D, 25-hydroxy 37.0 NG/mL 30.0-1 00.0 Vitam in D defic iency has been defin ed by the Insti tute of Medic ine and an Endoc rine Socie ty pract ice guide line as a level of serum 25-OH vitam in D less than 20 ng/mL (1,2) . The Endoc rine Socie ty went on to furth er defin e vitam in D insuf ficie ncy as a level betwe en 21 and 29 ng/mL (2). 1. IOM (Inst itute of Medic ine). 2010. Dieta ry refer ence intak es for calci um and D. Washi ngton [place]: The Natio nal [facility] Press . 2. Kianna coronado [place], Sherron denny [place], [place] off-F errar i SMITH, et al. Evalu ation , treat ment, and preve ntion of vitam in D defic iency : an Endoc rine Socie ty clini rodrigo pract ice guide line. JCEM. 2010; 96(7) :1911 -30. Not Available [facility] ([facility]) [address], [place], [address], 05/27/2024 09:11:36 07/20/19 25 07/27/2024 COMPL IANCE DRUG KENDALL SIS, UR summary report (summary) FINAL ===== ===== ===== ===== ===== ===== ===== ===== ===== ===== ===== ===== ===== === TOXAS SURE COMP DRUG KENDALL SIS,U R ===== ===== ===== ===== ===== ===== ===== ===== ===== ===== ===== ===== ===== === Test Resul t Flag Units Drug Prese nt Amphe tamin e 4083 ng/mg creat Amphe tamin e is avail able as a sched ule II presc ripti on drug. Aceta minop hen PRESE NT Propr anolo l PRESE NT ===== ===== ===== ===== ===== ===== ===== ===== ===== ===== ===== ===== ===== === Test Resul t Flag Units Ref Range Creat inine 70 mg/dL >=20 ===== ===== ===== ===== ===== ===== ===== ===== ===== ===== ===== ===== ===== === Decla red Medic ation s: Medic ation list was not provi ded. ===== ===== ===== ===== ===== ===== ===== ===== ===== ===== ===== ===== ===== === For clini rodrigo consu ltati on, pleas e call . ===== ===== ===== ===== ===== ===== ===== ===== ===== ===== ===== ===== ===== === Not Available [facility] ([facility]) [address] [facility], [place], [address], 07/28/2024 06:21:17 07/20/1907/27/2024 COMPL IANCE DRUG KENDALL SIS, UR pdf . 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 6 normal Not Available Not Available 08/07/2024 13:06:44 Result Notes None recorded. Problems Name Problem SNOMED Code Status Onset Date Resolution Date Notes Provider Name and Address Organization Details Recorded Time 06508286 Completed 201907/15/2020 Ginette Quach null, [place] - [facility] 1 15:27:30 Attention deficit hyperacti vity disorder 359181250 Active 2023 JC GONZALEZ DO Attn: Jannie erwin,[address] [facility], [place], [address], [facility] 4 17:32:09 Migraine with aura 7591198 Active 2023 JC GONZALEZ DO Attn: Jannie erwin,[address] [facility], [place], [address], [facility] - [facility] 4 17:32:11 Accidenta l needle stick injury [id number] 06364 Active 2023Jul 2022 JC GONZALEZ DO Attn: Jannie erwin,[address] [facility], [place], [address], [facility] - [facility] 4 17:40:04 Chronic low back pain 033427562 Active 2023 JC GONZALEZ DO Attn: Jannie erwin,[address] 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, [place], [address], [place] - [facility] 5 15:36:19 Easy bruising 046153320 Completed 202308/15/2024 JC GONZALEZ DO Attn: Jannie erwin,[address] [facility], [place], [address], [facility] - [facility] 5 17:48:57 History of anaphylax is 314005977893 73085 Active 2023 JC GONZALEZ DO Attn: Jannie erwin,[address] [facility], [place], [address], [place] - [facility] 4 16:46:36 Tachycard ia 9973325 Active 2023 JC GONZALEZ DO Attn: Jannie erwin,[address] [facility], [place], [address], [place] - [facility] 4 16:46:33 Fatigue 54487366 Active 2023 JC GONZALEZ DO Attn: Jannie erwin,[address] [facility], [place], [address], [facility] - [facility] 4 15:16:56 Problem Notes None recorded. Procedures Surgical History Date Name Laterality Status Provider Name and Address Organization Details Recorded Time 03/09/20 24 Control Implant Insertion completed Nicolasa Duque MD Attn: Accounting,[address] [place], [address], [facility] - [facility] 03/12/2024 12:45:15 02/29/20 21 Date of Last Pap Smear completed DAVID Cheung [place] - [facility] 08/17/2022 14:37:54 06/14/19 12 Other completed Ammy Huff [place] - [facility] 10/11/2015 10:59:21 Appendectomy completed Cesilia Joshua MA [place] - [facility] 03/03/2024 10:56:05 Imaging Results None recorded. Procedure Notes None recorded. Medical Equipment None Reported. Allergies Allergen ID Allergen Name Allergen Category Reaction Reaction Severity Criticality Documentation Date Start Date Code Code System Note Provider Name and Address Organization Details Recorded Time 927939 topiramat e medicatio n Not available Not available high 06/30/2024 25607 RxNorm easy bruis ing Not Available Not Available Not Available Medications Name Sig Start Date Stop Date Status Note LastModified by Organization Details LastModified Time amoxicill in 500 mg capsule TAKE ONE CAPSULE BY MOUTH THREE TIMES DAILY UNTIL GONE 03/03 completed Not Available Not Available Not Available buspirone 5 mg tablet TAKE 1 TABLET BY MOUTH THREE TIMES DAILY FOR ANXIETY 03/03 completed Not Available Not Available Not Available trazodone 50 mg tablet 06/10 completed Not Available Not Available Not Available sumatript an 100 mg tablet TAKE 1 TABLET BY MOUTH 1 TIME NEEDED FOR MIGRAINE . MAY REPEAT 1 DOSE IN 2 HOURS IF NO RELIEF 06/30 completed Not taking, causes excessiv e sweating Not Available Not Available Not Available hydrocodo ne 5 mg-acetam inophen 325 mg tablet TAKE 1-2 TABLETS BY MOUTH EVERY 4 HOURS NEEDED FOR MODERATE TO SEVERE PAIN FOR UP TO 3 DAYS 03/03 completed Not Available Not Available Not Available sumatript an 25 mg tablet Take 1 tablet by oral route as needed, for migraine , may repeat dose x1 after at least 1h. 08/15 completed Pt states the neurolog ist told her to stop taking this Not Available Not Available Not Available dextroamp hetamine- amphetami ne 10 mg tablet Take 1 tablet every day by oral route as directed for 30 days, for ADHD. 2024 active Not Available Not Available Not Avai lable rizatript an 10 mg tablet Take 1 tablet as needed by oral route. active Not Available Not Available No t Available propranol ol ER 60 mg capsule,2 4 hr,extend ed release TAKE 1 CAPSULE BY MOUTH EVERY DAY 06/23 completed Dose increase d to 80mg daily Not Available Not Available Not Available sumatript an 50 mg tablet TAKE 1 TABLET BY MOUTH ONCE NEEDED MIGRAINE . MAY REPEAT DOSE IN 2 HOURS IF NO RELIEF. 03/31 completed Not Available Not Available Not Available topiramat e 25 mg tablet TAKE 1 TABLET BY MOUTH EVERY DAY 04/28 completed Not Available Not Available Not Available doxycycli ne monohydra te 100 mg tablet TAKE 1 TABLET BY MOUTH TWICE DAILY FOR 10 DAYS 03/03 completed Not Available Not Available Not Available oxycodone -acetamin ophen 5 mg-325 mg tablet TAKE ONE TO TWO TABLETS BY MOUTH EVERY 4 HOURS NEEDED FOR PAIN 08/17 completed Not Available Not Available Not Available amoxicill in 875 mg tablet 04/05 completed Not Available Not Available Not Available amitripty line 25 mg tablet 06/05 completed Not Available Not Available Not Available triamcino lone acetonide 0.1 % dental paste PLACE A SMALL AMOUNT TO AFFECTED AREA BY MUCOUS MEMBRANE 1 TO 2 TIMESA DAILY AFTER MEALS 03/09 completed Not Available Not Available Not Available dextroamp hetamine- amphetami ne ER 20 mg 24hr capsule,e xtend release Take 1 capsule every day by oral route for 30 days. 04/28 completed Not Available Not Available Not Available amitripty line 10 mg tablet TAKE 1 TABLET BY MOUTH EVERY DAY 06/05 completed Pt not taking, replaced with 25mg Not Available Not Available Not Available pantopraz ole 40 mg tablet,de layed release TAKE 1 TABLET BY MOUTH DAILY 03/03 completed Not Available Not Available Not Available mirtazapi ne 30 mg tablet 06/10 completed Not Available Not Available Not Available trazodone 150 mg tablet 06/10 completed Not Available Not Available Not Available oseltamiv ir 75 mg capsule TAKE 1 CAPSULE BY MOUTH TWICE DAILY FOR 5 DAYS 08/17 completed Not Available Not Available Not Available propranol ol ER 80 mg capsule,2 4 hr,extend ed release TAKE 1 CAPSULE BY MOUTH EVERY DAY FOR MIGRAINE HEADACHE active Not Available Not Available No t Available fluoxetin e 10 mg capsule 06/10 completed Not Available Not Available Not Available gabapenti n 300 mg capsule TAKE 1 CAPSULE BY MOUTH THREE TIMES DAILY active Not Available Not Available No t Available dextroamp hetamine- amphetami ne ER 10 mg 24hr capsule,e xtend release TAKE 2 CAPSULES BY MOUTH EVERY DAY FOR ADHD active Not Available Not Available No t Available mirtazapi ne 15 mg tablet 06/10 completed Not Available Not Available Not Available epinephri ne 0.3 mg/0.3 mL injection , auto-inje ctor INJECT NEEDED FOR ANAPHYLA XIS active Not Available Not Available No t Available methylpre dnisolone 4 mg tablets in a dose pack FOLLOW PACKAGE DIRECTIO NS 03/03 completed Not Available Not Available Not Available hydroxyzi ne HCl 10 mg tablet TAKE 1 TO 2 TABLETS BY MOUTH EVERY 6 HOURS NEEDED FOR ANXIETY 03/03 completed Not Available Not Available Not Available fluoxetin e 20 mg capsule TAKE ONE CAPSULE BY MOUTH EVERY DAY 08/17 completed Not Available Not Available Not Available medroxypr ogesteron e 150 mg/mL intramusc ular suspensio n Inject 1 mL every 3 months by intramus cular route. 08/17 completed Not Available Not Available Not Available naproxen 500 mg tablet TAKE 1 TABLET BY MOUTH TWICE DAILY FOR UP TO 10 DAYS NEEDED FOR MODERATE TO SEVERE PAIN 03/03 completed Not Available Not Available Not Available diazepam 5 mg tablet TAKE 1 TO 2 TABLETS BY MOUTH 1 HOUR BEFORE TEST 03/03 completed Not Available Not Available Not Available amoxicill in 500 mg-potass ium clavulana te 125 mg tablet TAKE 1 TABLET BY MOUTH EVERY 8 HOURS FOR 7 DAYS 03/03 completed Not Available Not Available Not Available Depo-Prov era 150 mg/mL intramusc ular syringe Inject 150 mL every 3 months by intramus cular route as directed . 04/05 completed [facility]# 27298-22 37-1 Not Available Not Available Not Available nitrofura ntoin monohydra te/macroc rystals 100 mg capsule 06/10 completed Not Available Not Available Not Available FeroSul 325 mg (65 mg iron) tablet Take 1 tablet every day by oral route with meals. 08/17 completed Not Available Not Available Not Available Nexplanon 68 mg subdermal implant Inject 1 implant by subcutan eous route. 2023 active Not Available Not Available Not Avai lable ID NOW COVID-19 Test Kit TEST DIRECTED TODAY 10/12 completed Not Available Not Available Not Available Zafemy 150 mcg-35 mcg/24 hr transderm al patch APPLY 1 PATCH TOPICALL Y TO THE SKIN EVERY WEEK FOR 3 WEEKS active Not Available Not Available No t Available Qulipta 10 mg tablet Take 1 tablet every day by oral route. active Not Available Not Available No t Available Vitals Date Recorded Body height Body mass index (BMI) Body weight Body temperature Respiratory rate Oxygen saturation Oxygen saturation in Arterial blood by Pulse oximetry Heart rate Systolic blood pressure Diastolic blood pressure Provider Name and Address Organization Details Last Updated DateTime 4 152.4 cm 22.3 kg/m2 18295.6 1 g 98.6 [degF] 16 /min 98 % 98 % 112 /min 115 mm[Hg] 73 mm[Hg] Guera Ordonez [facility] 4 09:15:03 Date Recorded Body height Body mass index (BMI) Body weight Heart rate Body temperature Respiratory rate Oxygen saturation Oxygen saturation in Arterial blood by Pulse oximetry Systolic blood pressure Diastolic blood pressure Provider Name and Address Organization Details Last Updated DateTime 4 152.4 cm 23.6 kg/m2 99033.3 2 g 105 /min 97.5 [degF] 18 /min 98 % 98 % 109 mm[Hg] 68 mm[Hg] DAVID Gannon [facility] 4 09:15:41 Date Recorded Body height Provider Name an d Address Organization Details Last Updated DateTime 06/23/2024 152.4 cm Jerrica Riojas RN [facility] 025 10:45:41 Date Recorded Body height Body mass index (BMI) Body weight Heart rate Body temperature Respiratory rate Oxygen saturation Oxygen saturation in Arterial blood by Pulse oximetry Systolic blood pressure Diastolic blood pressure Provider Name and Address Organization Details Last Updated DateTime 5 152.4 cm 22.8 kg/m2 38570.3 1 g 76 /min 98.4 [degF] 16 /min 98 % 98 % 98 mm[Hg] 55 mm[Hg] DAVID Gannon [facility] 5 10:16:13 Date Recorded Body height Body mass index (BMI) Body weight Body temperature Respiratory rate Heart rate Systolic blood pressure Diastolic blood pressure Provider Name and Address Organization Details Last Updated DateTime 5 152.4 cm 22.9 kg/m2 23233.4 1 g 97.3 [degF] 16 /min 69 /min 106 mm[Hg] 70 mm[Hg] Maxwell Omer MA [facility] 5 14:36:13 Social History Question Answer Notes LastModified by Organizat ion Details LastModified Time Tobacco Smoking Status Never Smoker Ammy Huff MA [facility], [facility] 10/11/2015 11:00:59 Do You Have An Advance Directive? No [facility] Information not available 10/11/2015 What Is Your Level Of Alcohol Consumption? None Information not available 10/11/2015 Is Blood Transfusion Acceptable In An Emergency? [email or web address] Information not available 10/11/2015 What Is Your Level Of Caffeine Consumption? Moderate Information not available 10/11/2015 How Much Tobacco Do You Chew? None Information not available 10/11/2015 In The 14 Days Before Symptom Onset, Have You Had Close Contact With A Laboratory-confi rmed COVID-19 While That Case Was Ill? No Information not available 03/03/2024 In The 14 Days Before Symptom Onset, Have You Had Close Contact With A Person Who Is Under Investigation For COVID-19 While That Person Was Ill? No Information not available 03/03/2024 Have You Been To An Area Known To Be High Risk For COVID-19? No Information not available 03/03/2024 Are You Currently Employed? Yes Information not available 10/11/2015 What Type Of Diet Are You Following? REGULAR Information not available 10/11/2015 Do You Or Have You Ever Used E-cigarettes Or Vape? 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 With Others Information not available 10/11/2015 What Was The Date Of Your Most Recent Tobacco Screening? 08/15/2024 Information not available 08/15/2024 How Many Children Do You Have? 2 Information not available 08/17/2022 Performs Monthly Self-breast Exam? No Information not available 10/11/2015 Do You Use Protection During Sex? Always Information not available 10/11/2015 What Is Your Relationship Status? Single Lives W/ Boyfriend Information not available 03/03/2024 Seat Belts Used Routinely Yes Information not available 10/11/2015 Are You Sexually Active? Yes Information not available 10/11/2015 Do You Have Smoke And Carbon Monoxide Detectors In Your Home? Yes Information not available 03/03/2024 Are You Passively Exposed To Smoke? No Information not available 03/03/2024 Do You Or Have You Ever Used Smokeless Tobacco? Never Used Smokeless Tobacco Information not available 04/05/2020 How Much Tobacco Do You Smoke? No Information not available 04/05/2020 General Stress Level High Information not available 10/11/2015 Do You Use Any Illicit Or Recreational Drugs? No Information not available 03/03/2024 Do You Use Sunscreen Routinely? No Information not available 10/11/2015 Has Tobacco Cessation Counseling Been Provided? No Information not available 08/12/2020 On What Date Was Tobacco Cessation Counseling Provided? 08/15/2024 Information not available 08/15/2024 Do You Or Have You Ever Used Any Other Forms Of Tobacco Or Nicotine? No Information not available 08/12/2020 Sex: Female Functional Status Question Answer Note LastModified by Organizat ion Details LastModified Time What is your exercise level? Occasional Information not available 10/11/2015 Mental Status None recorded. Family History Relationship Description Onset Age of this Age Resolved Age Notes LastModified by Organization Details LastModified Time Paternal Uncle Alcohol abuse erobbinsma Not available 03/03 10:47:56 Paternal Uncle Alcohol abuse erobbinsma Not available 03/03 10:47:56 Paternal Uncle Cardiac pacemaker procedure erobbinsma Not available 03/03 10:51:26 Paternal Uncle Hypertensive disorder 2 patern al uncles erobbinsma Not available 03/03/2024 10:52:31 Paternal Uncle Myocardial infarction erobbinsma Not available 02/13 10:53:15 Maternal Uncle Alcohol abuse erobbinsma Not available 03/03 10:47:56 Brother Attention deficit hyperactivit y disorder erobbinsma Not available 02/13 10:48:15 Brother Depressive disorder Pt. has 3 brothe rs and they all have it. erobbinsma Not available 03/03/2024 10:50:03 Brother Tachycardia erobbinsma Not wood ilable 03/03/2024 10:51:19 Brother Hypercholest erolemia erobbinsma Not available 03/03 10:51:47 Brother Hypertensive disorder erobbinsma Not available 03/03 10:52:31 Brother Migraine erobbinsma Not availa ble 03/03/2024 10:52:58 Maternal Grandmother Cerebrovascu lar accident erobbinsma Not available 10:48:36 Maternal Grandmother Kidney disease erobbinsma Not available 03/03 10:52:46 Maternal Grandmother Malignant tumor of kidney erobbinsma Not available 03/03 10:53:55 Paternal Grandmother Cerebrovascu lar accident erobbinsma Not available 10:48:36 Paternal Grandmother Cardiac pacemaker procedure erobbinsma Not available 03/03 10:51:03 Paternal Grandmother Hypercholest erolemia erobbinsma Not available 03/03 10:51:47 Paternal Grandmother Hypertensive disorder erobbinsma Not available 03/03 10:52:31 Paternal Grandmother Myocardial infarction erobbinsma Not available 02/13 10:53:15 Paternal Grandmother Malignant tumor of stomach erobbinsma Not available 03/03 10:53:44 Maternal Grandfather Dementia erobbinsma Not available 10:49:12 Maternal Grandfather Malignant tumor of prostate erobbinsma Not available 03/03 10:54:06 Mother Depressive disorder erobbinsma Not available 03/03 10:50:03 Mother Hypercholest erolemia erobbinsma Not available 03/03 10:51:47 Mother Migraine erobbinsma Not availab le 03/03/2024 10:52:57 Father Depressive disorder erobbinsma Not available 03/03 10:50:03 Father Hypercholest erolemia erobbinsma Not available 03/03 10:51:47 Father Hypertensive disorder erobbinsma Not available 03/03 10:52:31 Sister Depressive disorder erobbinsma Not available 03/03 10:50:03 Paternal Grandfather Hypertensive disorder erobbinsma Not available 03/03 10:52:31 Notes:08/15/24 Medical History Condition Response Other N High Blood Pressure N Breast Cancer N Thyroid Problems N Kidney or Bladder Problems N GI Problems N Depression Y Blood Clots N Lung Disease N Acne N Breast Problem N Eating Disorder N Anemia N Anesthesia Complications N Headaches/Migraines N Anxiety Disorder Y Diabetes N Ovarian Cancer N Muscle, Joint, or Bone Problems N Blood Transfusions N Seizures/Epilepsy N Polyps N Infertility N Acid Reflux (GERD) N Cancer N Abuse/Domestic Violence N Asthma N Endometriosis N High Cholesterol N Hepatitis N Liver Disease N Heart Disease N Pre-Eclampsia N Osteoporosis N Gynecological History Statement/Question Response Flow Moderate Date of LMP 08/10/2024 STIs/STDs N HPV Vaccine N Duration of Flow (days) 4 Age at Menarche 11 Current Control Method Implant If Post Menopausal, Age at Menopause Frequency of Cycle (Q days) 30 Sexually Active? Y Menses Monthly N Date of Last Pap Smear 02/28/2021 Sexual Problems? N LMP Approximate Obstetrics History GPAL:G 3 P 2 0 1 2 Type Value Multiple Births 0 Full Term 2 Induced 0 Spontaneous 1 Premature 0 Living 2 Ectopics 0 Total 3 Immunizations Vaccine Type Date Status Note Provider Nam e and Address Organization Details Recorded Time Hib, unspecified formulation 0 completed Shanda Cristin, R[place], [place] [facility] 08/17/2022 14:37:26 Hib, unspecified formulation 0 completed Shanda Cristin, [place] [facility] 08/17/2022 14:37:26 Hib, unspecified formulation 1 completed Shanda Cristin, [place] [facility] 08/17/2022 14:37:26 meningococcal B, OMV 6 completed Shanda Cristin, [place] [facility] 08/17/2022 14:37:26 meningococcal B, OMV 2 completed Shanda Amaral, [place] [facility] 08/17/2022 14:37:26 HPV9 6 completed Shanda Cristin, [place] [facility] 08/17/2022 14:37:26 IPV 0 completed Shanda Cristin, [place] [facility] 08/17/2022 14:37:26 IPV 0 completed Shanda Cristin, [place] [facility] 08/17/2022 14:37:26 IPV 3 completed Shanda Cristin, [place] [facility] 08/17/2022 14:37:26 IPV 5 completed Shanda Cristin, [place] [facility] 08/17/2022 14:37:26 MMR 1 completed Shanda Cristin, [place] [facility] 08/17/2022 14:37:26 MMR 5 completed Shanda Cristin, [place] [facility] 08/17/2022 14:37:26 pneumococcal conjugate PCV 7 1 completed Shanda Cristin, [place] [facility] 08/17/2022 14:37:26 Tdap 3 completed Shanda Cristin, [place] [facility] 08/17/2022 14:37:26 varicella 1 completed Shanda Cristin, [place] [facility] 08/17/2022 14:37:26 varicella 3 completed Shanda Cristin, [place] [facility] 08/17/2022 14:37:26 varicella 4 completed Shanda Cristin, [place] [facility] 08/17/2022 14:37:26 HPV, quadrivalent 3 completed Shanda Cristin, [place] [facility] 08/17/2022 14:37:27 Hep B, adolescent or pediatric 0 completed Shanda Cristin, [place] [facility] 08/17/2022 14:37:27 Hep B, adolescent or pediatric 0 completed Shanda Cristin, [place] [facility] 08/17/2022 14:37:27 Hep B, adolescent or pediatric 3 completed Shanda Cristin, [place] [facility] 08/17/2022 14:37:27 Hep A, ped/adol, 2 dose 6 completed Shanda Cristin, [place] [facility] 08/17/2022 14:37:27 Hep A, ped/adol, 2 dose 3 completed Shanda Cristin, [place] [facility] 08/17/2022 14:37:27 meningococcal MCV4P 6 completed Shanda Cristin, [place] [facility] 08/17/2022 14:37:27 meningococcal MCV4P 3 completed Shanda Cristin, [place] [facility] 08/17/2022 14:37:27 DTaP 0 completed Shanda Cristin, [place] [facility] 08/17/2022 14:37:27 DTaP 0 completed Shanda Cristin, [place] [facility] 08/17/2022 14:37:27 DTaP 0 completed Shanda Cristin, [place] [facility] 08/17/2022 14:37:27 DTaP 3 completed Shanda Cristin, [place] [facility] 08/17/2022 14:37:27 DTaP 5 completed Shanda Cristin, [place] [facility] 08/17/2022 14:37:27 Tdap 0 completed Jarad Chandra MD Attn: Accounting,[address] [place], [address], [place] [facility] 06/10/2020 11:22:32 Past Encounters Encounter ID Performer Location Encounter Start Date Encounter Closed Date Diagnosis/Indication Diagnosis SNOMED-CT Code Diagnosis ICD10 Code Diagnosis Note [id number] KAREN Coto (EMBROIDERY FINISHER) [address] [place] [address] 10/11/2015 10:16:14 10/11/2015 14:34:11 Contraception care management 262958993 Z30.9 Initiation of depot contraception done 0291457524 24452 Z30.013 Gynecologi c examination 16082965 Z01.419 [id number] Kim Salvador Bernardo (EMBROIDERY FINISHER) [address] [place] [address] 10/15/2015 15:52:30 10/25/2015 15:56:37 Uses depot contraception 151242475 Z30.013 [id number] KAREN Coto (EMBROIDERY FINISHER) [address] [place] [address] 01/14/2016 14:55:43 01/15/2016 16:34:43 Uses depot contraception 058300865 Z30.554 [id number] RUBEN Bailey (EMBROIDERY FINISHER) [address] [place] [address] 04/07/2016 15:14:54 04/07/2016 15:58:28 Uses depot contraception 249371518 Z30.840 [id number] Jerrica Riojas RN [place] [address] [place] [address] [place] [address] 01/03/2020 11:41:48 01/04/2020 12:37:56 Normal 01371236 Z34.80 [id number] MD Kylah Villar [address] [place] [address] 02/15/2020 10:10:18 02/16/2020 11:25:35 Normal 13349849 Z34.80 [id number] MD Kylah Villar [address] [place] [address] 03/08/2020 11:05:00 03/11/2020 11:06:14 Routine care 702522303 Z34.92 Normal 2614305 2 Z34.80 [id number] MD Kylah Villar [address] [place] [address] 04/05/2020 11:26:08 04/08/2020 13:40:52 Routine care 818341871 Z34.92 Normal 1837040 2 Z34.80 [id number] MD Kylah Villar [address] [place] [address] 04/12/2020 11:25:03 04/15/2020 10:44:13 Routine care 995900670 Z34.92 Normal 1278608 2 Z34.80 [id number] MD Kylah Villar 14 OB [address] [facility] [place] [address] 05/03/2020 11:03:18 05/06/2020 11:40:09 Normal 23538446 Z34.80 Anemia of 2734 2003 O99.727 [id number] MD Kylah Villar 14 OB [address] [facility] [place] [address] 05/27/2020 16:21:58 05/28/2020 12:48:10 Normal [id number] Z34.80 [id number] MD Kylah Villar 14 OB [address] [facility] [place] [address] 06/10/2020 11:01:31 06/11/2020 14:32:39 Normal 24984928 Z34.80 Administra tion of diphtheria, pertussis, and tetanus vaccine 813506097 Z23 [id number] MD Kylah Villar 14 OB [address] [facility] [place] [address] 06/17/2020 13:58:34 06/18/2020 10:45:51 Normal 42742634 Z34.80 [id number] MD Kylah Villar 14 OB [address] [facility] [place] [address] 06/24/2020 14:10:37 06/25/2020 12:51:35 Normal [id number] Z34.80 [id number] MD Kylah Villar 14 OB [address] [facility] [place] [address] 07/02/2020 15:03:21 07/03/2020 12:23:29 Normal 94896464 Z34.80 [id number] MD Kylah Villar 14 OB [address] [facility] [place] [address] 08/08/2020 14:39:25 08/08/2020 15:21:11 depression 92757286 F53.0 Contracept ion care management 124734508 Z30.9 [id number] MD Kylah Villar 14 OB [address] [facility] [place] [address] 08/12/2020 14:42:47 08/13/2020 11:45:17 care 755423080 Z39.2 depression 58 167670 F53.0 [id number] MD Kylah Villar 14 OB [address] [facility] [place] [address] 08/22/2020 15:43:48 08/23/2020 12:34:39 care 713051959 Z39.2 Contracept ion care management 906808888 Z30.9 [id number] Shanda Amaral Sukhdev Ch[place] 14 OB [address] [facility] [place] [address] 11/08/2020 12:17:22 11/12/2020 11:59:07 Contraception care management 218073054 Z30.9 [id number] MD Kylah Villar 14 OB [address] [facility] [place] [address] 02/28/2021 11:57:40 03/03/2021 05:53:41 Gynecologic examination 69052419 Z01.362 [id number] Shanda Amaral Sukhdev Chaney 14 OB [address] [facility] [place] [address] 03/17/2021 12:34:02 03/18/2021 12:18:57 Contraception care management 904541661 Z30.9 [id number] Shanda Amaral Sukhdev [place] 14 OB [address] [facility] [place] [address] 03/31/2021 12:38:10 04/01/2021 06:35:06 Contraception care management 795312093 Z30.9 [id number] Shanda Amaral Sukhdev [place] 14 OB [address] [facility] [place] [address] 06/26/2021 14:07:15 06/27/2021 11:05:20 Contraception care 678935467 Z30.40 [id number] Shanda Amaral Sukhdev [place] 14 OB [address] [facility] [place] [address] 09/22/2021 11:31:27 09/23/2021 07:15:08 Contraception care 827889115 Z30.40 [id number] Shanda Amaral, Sukhdev [place] 14 OB [address] [facility] [place] [address] 12/08/2021 13:48:10 12/09/2021 07:55:00 Contraception care 522572393 Z30.40 [id number] Shanda Amaral, Sukhdev [place] 14 OB [address] [facility] [place] [address] 03/06/2022 09:47:10 03/09/2022 09:09:29 Contraception care 533548925 Z30.40 [id number] Jarad Chandra MD [place] 14 OB [address] [facility] [place] [address] 08/17/2022 14:19:53 08/18/2022 11:25:13 Pruritic rash 79610852 L28.2 [id number] Meche Causey MD [place] 14 IM [address] [facility] [place] [address] 03/03/2024 10:24:32 03/13/2024 08:34:40 Contraception care management 403245281 Z30.8 Irregular menstruati on likely related to inefficien cy of patch given previously normal periodsPat ch always falls off earlySched ule in procedure clinic for nexplanon and pap smearNot a candidate for estrogen containing contracept tiffanie due to migraine with auraIf bleeding issues do not improve with nexplanon, can consider further work up Migraine with aura 05343 06 G43.109 Having migraines 2-3 times per weekNot controlled with imitrexSta rt on topiramate 25 mg dailyCan use imitrex as neededFoll ow up in 1 month Attention deficit hyperactivity disorder 538048859 F90.8 Had IEP all through schoolWas diagnosed with ADHD as a child but parents refused to give her medication sNow going through college and having difficulty Is taking Adderall and doing well with the current dosePCP was previously prescribin g, Saw Dr. De La Torre but he is now going to wound care and only seeing patients once weeklyCan also discuss this further at next visit, but will have to confirm with attending if they are willing to take over RxPDMP reviewed Accidental needle stick injury [id number] 0250182 T14.8XXD Occurred in 2022 when she was a phlebotomi stGot tested at that time and was negativeRe asonable to check her for HIV and acute hepatitisA lso recommend RPR given sexually active Chronic low back pain 27 5500369 M54.59 Chronic, uncontroll edHas had xrays and MRI which showed bulging discShe was a gymnastDid not go into detail about this today however seems like previous PCP has does some work up and wanted her to see Pain management but patient did not want to be on pain pills and that is what she thought pain management does so she never followed up on the referralWi ll request records, patient signed record releaseCan discuss further at next visit and after records are reviewed [id number] MD Kylah Vega 14 [address] [facility] [place] [address] 03/09/2024 15:17:17 03/16/2024 09:12:44 Insertion of subcutaneous contraceptive 604704032 Z30.46 Patient presenting for Nexplanon insertion. Procedure performed without complicati on. Patient tolerated well. Wound care instructio ns and return precaution s given. Recommend removal in 3 years. [id number] MD Kylah Plummer 14 IM [address] [facility] [place] [address] 04/28/2024 08:56:09 06/02/2024 13:54:43 Migraine with aura 9658576 G43.109 Chronic uncontroll edPrevious ly Having migraines 2-3 times per weekStarte d on topiramate 25 mg daily which helped a lot but maybe causing some easy bruising and bleeding gumsCan use imitrex as neededStar t amitriptyl ine 10mg nightlyFol low up in 1 month Easy bruising 914147289 R58 Could be related to the topiramate Will stop and obtain CBC, PT and PTT History of anaphylaxis [id number] 9537297 Z87.892 Had episode of lip swelling and throat closing x2 in last yearWill give rx for epi penHas heel cementer appointmen t in Jun Attention deficit hyperactivity disorder 579116490 F90.8 Had IEP all through schoolWas diagnosed with ADHD as a child but parents refused to give her medication sNow going through college and having difficulty Would like to split up her dose of adderall because it is making her stay up too late and some days she feels like she just needs 10mg if it is a light day at school Will give rx for 10 mg ER (take 2 capsules daily). (Dr. Dewey to write) PDMP reviewed Tachycardia [id number] R00. 0 HR elevated todayCould be related to adderall useInstruc hemalatha patient to take holidays of medication on the weekends and on her shorter days, only take 10mgFollow up in 3-4 weeks [id number] MD Kylah Vega 14 IM [address] [facility] [address] [place] [address] 05/26/2024 09:03:58 06/29/2024 14:49:33 Migraine with aura [id number] G43.109 Chronic uncontroll edPrevious ly Having migraines 2-3 times per weekStarte d on topiramate 25 mg daily which helped a lot but maybe causing some easy bruising and bleeding gums - symptoms stopped after stopping the topiramate .Can use imitrex as neededFail ed treatment with amitriptyl ineStart propranolo lNeuro referral Attention deficit hyperactivity disorder [id number] F90.8 Had IEP all through schoolWas diagnosed with ADHD as a child but parents refused to give her medication sNow going through college and having difficulty Adderral 10 mg ER (take 2 capsules daily)Due for rx on 05/30 PDMP reviewed Tachycardia [id number] R00. 0 HR mildly elevated todayCould be related to adderall useInstruc hemalatha patient to take holidays of medication on the weekends and on her shorter days, only take 10mgCheck TSH and CMPStartin g propranolo l forFollow up in 3-4 weeks Fatigue 07311984 R53.83 Generalize d fatigue for past few monthsNot anemicRequ esting to be tested for Vit D, B12 and folate deficienci es Chronic low back pain 27 [id number] M54.59 Chronic, uncontroll edHas had xrays and MRI which showed bulging discShe was a gymnastSee s Pain management - request records; [address] [place], [place] Gabapentin 300mg nightlyCon tinue treatment per pain management [id number] RUBEN Aceves 14 IM [address] [facility] [place] [address] 06/23/2024 10:28:53 06/26/2024 13:45:12 Migraine with aura [id number] G43.109 Headaches appear to be improving with propranolo l over amitriptyl ine, however continues to get frequent headaches per week Offered to continue on current dose and monitor for another month or increase dose slightly, with shared decision making, patient opted to increase propranolo l dose Increase propranolo l ER from 60 mg daily to 80 mg daily Continue sumatripta n 100 mg PRN for severe headaches Encourage d following up with neurology Aug 07, 2024 RTC in 1 month in person for headache and palpitatio n follow-up Intermitte nt palpitations [id number] R00.2 Patient reports intermitte nt palpitatio ns, was noted to be tachycardi c last visit Advised patient to monitor her BP intermitte ntly over the next few weeks RTC in 1 month for follow-up Suspect propranolo l dose increase may help with palpitatio ns Of note, patient taking 1 tablet of Adderall 10 mg since she is on break from school at this time [id number] MD Kylah GOTTLIEB 14 IM [address] [facility] [place] [address] 06/30/2024 10:05:16 07/06/2024 11:37:13 Migraine with aura [id number] G43.109 Chronic uncontroll edPrevious ly Having migraines 2-3 times per weekStarte d on topiramate 25 mg daily which helped a lot but maybe causing some easy bruising and bleeding gums - symptoms stopped after stopping the topiramate .Failed treatment with amitriptyl ineCan use imitrex as needed (will decrease dose, having AEs with large dose)Incre ased propranolo l to 80 mg dailyNeuro appointmen t 08/07 Attention deficit hyperactivity disorder [id number] F90.9 Had IEP all through schoolWas diagnosed with ADHD as a child but parents refused to give her medication sNow going through college and having difficulty Adderral 10 mg ER (take 2 capsules daily)RX already done by Dr. Montejo PDMP reviewedUD S ordered todayContr olled substance agreement filled out today Health Concerns Section Related Observation LastModified by Organization Detai ls LastModified Time None Recorded Concern Status LastModified by Organization Details LastModified Time None Recorded Advance Directives Directive N: Payers Encounter Date Sequence Insurance Name Policy Number Policy Mina Covered Member ID Mina Member ID Guarantor Name 04/28/2024 2 [facility] ON OR AFTER 12/12/20 (MEDICAID REPLACEMENT - HMO) [facility] [id number] [facility] 05/26/2024 2 [facility] ON OR AFTER 12/12/20 (MEDICAID REPLACEMENT - HMO) [facility] [id number] [facility] 06/23/2024 2 [facility] ON OR AFTER 12/12/20 (MEDICAID REPLACEMENT - HMO) [facility] [id number] [facility] 06/23/2024 1 [facility] Shanda See [id number] [facility] 06/30/2024 2 [facility] ON OR AFTER 12/12/20 (MEDICAID REPLACEMENT - HMO) [facility] [id number] [facility] 06/30/2024 1 [facility] Shanda See [id number] [facility] Notes Date Note Type Note Provider Name and Address Organization Details Recorded Time 04/28/2024 text/html 24 yo F presents to clinic for migraine follow up Easy bruising and bleeding gumsStarted about a month ago after starting the topiramateAlso has been losing weight since being on it and her adderall.Her migraines however have been very well controlled. Back painHas had significant work up by previous PCP.Has referral from previous PCP for pain management. Still needs to make an appointment with pain management Had episode of lip swelling and throat closing x2 in last yearHad to have steroid shot for itCould not identify any triggersAllergist referral from previous PCP, appointment in [facility] not have an epi pen Laureen Matthew MD Attn: Accounting,[address] [facility], [place], [address], [place] - [facility] 06/02/2024 09:48:15 05/26/2024 text/html 24 yo F presents to migraine follow up MigraineStarted amitriptyline with no improvement in headaches. Having migraine almost every day. Easy BruisingHas completely resolved after being off the topiramate. Labs were normal Back painStarted gabapentin for chronic back pain with pain management in [place]. Meche Causey MD Attn: Accounting[address] [facility], [place], [address], [facility] 06/29/2024 09:34:18 06/23/2024 text/html This visit was performed by Phone only. The patient's name, , and home address were confirmed prior to initiation of phone encounter. 24-year-old female with PMHx of ADHD, and migraines with aura presenting for follow-up on migraine headaches. Patient last seen in clinic 05/26/2024, at that time, patient notes that her migraines with aura had been very difficult to control, she was on amitriptyline with minimal relief, having headaches almost every day. He was switched at that time to propranolol ER 60 mg capsule daily. Patient reports headaches are slightly better now that she is on propranolol then amitriptyline. Having an average of 2-3 headaches per week, most recent headache was Jun 12 to Jun 15, has not had a headache since then. If she is following, she tries to sleep it off in the dark. 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 She was also referred to a neurologist last visit, she has an appointment August 07, 2024, however she is not sure with whom. Patient does note that she gets occasional palpitations. Dr. Gonzalez was concerned about her tachycardia (HR 105 bpm last visit). She reports that when she went to bed last night, she felt her heart was racing. She has no means of checking her blood pressure or heart rate at this time, and has no log of her heart rate. See denies any dizziness, blurred vision, CP, SOB, abdominal pain, N/V, or numbness/tingling. RUBEN Aceves, [place] 06/28/2024 15:44:11 06/30/2024 text/html 24 yo F presents for migraine and ADHD follow up.l Phone visit with Dr. Mooney last week and increased propranolol at that time for migraine. Has not picked up the increased dose yet. Was still getting a few migraines a week. Was using the large dose of sumatriptan but was getting AEs with the large dose.Appt with Neuro on 08/07/23. No new concerns. ADHDDoing well. No concerns about dosing. ROSEANN MOONEY MD Attn: Accounting[address] [facility], [place], [address], [facility] 07/03/2024 16:01:53 OBGyn Episode Ob Episode Information Episode Created Date Number of Fetuses Patient Bloodtype Patient rh Status Prepregnancy Weight lbs Domestic Partner Domestic Partner Phone Father Name Electronic Operator Status 02/29/20 21 1 CLOSED Fetus Data First Name Last Name Admitted to NICU Weight (g) Sex Living Outcome Pediatric Complications Fetus ID Race Codes Race Delivery Type F Full Term [id number] Richard Calculation Initial Richard Date Initial Exam Date Initial Exam Provider Initial Ultrasound Date Last Menstrual Period Date Ultra Sound Weeks Gestation 0 Eighteen To Twenty Week Richard Update Ultra Sound Date Fundal Height At Umbil Quickening Date Ultra Sound Latest Weeks Gestation Final Richard Confirmed By Final Richard Confirmed Date Final Richard Date Ultra Sound Latest Days Gestation 0 0 Menstrual History Last Menstrual Date Menses Monthly On Bcp Conception Prior Menses Frequency Hcg Plus Date Menarche Onset Age Delivery Information Delivery Date Delivery Type Labor Anesthesia Weeks Gestation Incision Type Labor Labor Length Hrs Delivered By Post Complications Tubal Sterilization Discharge Date Comments 9 39 Discharge Information Feeding Method Contraceptive Method Maternal HG B and HCT Levels Ob Episode Information Episode Created Date Number of Fetuses Patient Bloodtype Patient rh Status Prepregnancy Weight lbs Domestic Partner Domestic Partner Phone Father Name Electronic Operator Status 01/03/20 20 1 A Positive CLOSED Fetus Data First Name Last Name Admitted to NICU Weight (g) Sex Living Outcome Pediatric Complications Fetus ID Race Codes Race Delivery Type Irma Reyes false 3657.08 55 F true Full Term [id number] White Standard Vaginal Delivery Richard Calculation Initial Richard Date Initial Exam Date Initial Exam Provider Initial Ultrasound Date Last Menstrual Period Date Ultra Sound Weeks Gestation 07/13/2020 01/03/2020 [email or web address] 03/15/2020 10/07/2019 21 Eighteen To Twenty Week Richard Update Ultra Sound Date Fundal Height At Umbil Quickening Date Ultra Sound Latest Weeks Gestation Final Richard Confirmed By Final Richard Confirmed Date Final Richard Date Ultra Sound Latest Days Gestation 0 07/13/19 21 0 Pre- Flowsheet Flowsheet Date 01/03/2020 Koenig Score Blood Edema Fundus Height Fundus Units Glucose Ketones Leukocytes Nitrite Labor Signs Protein Cervic Dilation Cervic Effacement Cervic Station none 12 wks 0cm 0% -4 Type Weight in lbs Pre/Post Dialysis Refused Weight 113.678601466430 BP Diastolic BP Location Tested BP Systolic BP Type 52 104 Fetus Heart Rate Present A 156 Present Fetus Movement Comments second , normal NOB examFirst with Dr Donahue, ( Big E antibody?)SROM, 36 hours of labor, epidural, pushed 1 hr. Flowsheet Date 02/15/2020 Koenig Score Blood Edema Fundus Height Fundus Units Glucose Ketones Leukocytes Nitrite Labor Signs Protein Cervic Dilation Cervic Effacement Cervic Station none 18 wks Type Weight in lbs Pre/Post Dialysis Refused With clothes 116.49405824427 BP Diastolic BP Location Tested BP Systolic BP Type 58 96 sitting Fetus Heart Rate Present A 145 Present Fetus Movement A Yes Comments doing well, girl per US zone .no big issues. Per t. covid test last wednesday was (- )us before next visit Flowsheet Date 03/08/2020 Koenig Score Blood Edema Fundus Height Fundus Units Glucose Ketones Leukocytes Nitrite Labor Signs Protein Cervic Dilation Cervic Effacement Cervic Station 20 cm none neg Type Weight in lbs Pre/Post Dialysis Refused With clothes 121.396810888065 BP Diastolic BP Location Tested BP Systolic BP Type 58 96 sitting Fetus Heart Rate Present A 156 Present Fetus Movement A Yes Comments doing well, no new issues.US was initially declined due to absence of clinical data on precert...(?)Hopefully will be done next wednesday Flowsheet Date 04/05/2020 Koenig Score Blood Edema Fundus Height Fundus Units Glucose Ketones Leukocytes Nitrite Labor Signs Protein Cervic Dilation Cervic Effacement Cervic Station none 24 cm none neg Type Weight in lbs Pre/Post Dialysis Refused With clothes 128.347807693001 BP Diastolic BP Location Tested BP Systolic BP Type 62 108 sitting Fetus Heart Rate Present A 154 Present Fetus Movement A Yes Comments doing OK, some hip and back painsugartest next weeknote for work for recent absences due to lightheadedness Flowsheet Date 04/12/2020 Koenig Score Blood Edema Fundus Height Fundus Units Glucose Ketones Leukocytes Nitrite Labor Signs Protein Cervic Dilation Cervic Effacement Cervic Station none 26 cm Type Weight in lbs Pre/Post Dialysis Refused With clothes 129.457733291906 BP Diastolic BP Location Tested BP Systolic BP Type 64 102 sitting Fetus Heart Rate Present A 145 Present Fetus Movement A Yes Comments doing well, sugar test ongoi ng todayno complaints Flowsheet Date 05/03/2020 Koenig Score Blood Edema Fundus Height Fundus Units Glucose Ketones Leukocytes Nitrite Labor Signs Protein Cervic Dilation Cervic Effacement Cervic Station none 28 cm Type Weight in lbs Pre/Post Dialysis Refused With clothes 134.471365490499 BP Diastolic BP Location Tested BP Systolic BP Type 60 102 sitting Fetus Heart Rate Present A 143 Present Fetus Movement A Yes Comments doing well, no new big issue spassed sugar test but was anemic, will start some iron Flowsheet Date 05/27/2020 Koenig Score Blood Edema Fundus Height Fundus Units Glucose Ketones Leukocytes Nitrite Labor Signs Protein Cervic Dilation Cervic Effacement Cervic Station none 31 cm Type Weight in lbs Pre/Post Dialysis Refused With clothes 136.319256120819 BP Diastolic BP Location Tested BP Systolic BP Type 62 108 sitting Fetus Heart Rate Present A 145 Present Fetus Movement A Yes Comments 33 weeks doing wellGBS next visitspontaneous labor at 37 weeks with first Flowsheet Date 06/10/2020 Koenig Score Blood Edema Fundus Height Fundus Units Glucose Ketones Leukocytes Nitrite Labor Signs Protein Cervic Dilation Cervic Effacement Cervic Station 33 cm none trace Type Weight in lbs Pre/Post Dialysis Refused With clothes 142.722054435615 BP Diastolic BP Location Tested BP Systolic BP Type 74 116 sitting Fetus Heart Rate Present A 144 Present Fetus Movement A Yes Comments Pt reports doing a 3d US yes terday, and baby is still breech.GBS and TDAP todaycervix check next time, discussed possible primary c/s for breech Flowsheet Date 06/17/2020 Koenig Score Blood Edema Fundus Height Fundus Units Glucose Ketones Leukocytes Nitrite Labor Signs Protein Cervic Dilation Cervic Effacement Cervic Station none 34 cm none neg 1cm 60% -4 Type Weight in lbs Pre/Post Dialysis Refused With clothes 141.03889640373 BP Diastolic BP Location Tested BP Systolic BP Type 74 122 sitting Fetus Heart Rate Present A 144 Present Fetus Movement A Yes Comments doing well, vertex confirmed by office USlabor precautions discussed Flowsheet Date 06/24/2020 Koenig Score Blood Edema Fundus Height Fundus Units Glucose Ketones Leukocytes Nitrite Labor Signs Protein Cervic Dilation Cervic Effacement Cervic Station none 35 cm Type Weight in lbs Pre/Post Dialysis Refused With clothes 143.358113792252 BP Diastolic BP Location Tested BP Systolic BP Type 68 114 sitting Fetus Heart Rate Present A 145 Present Fetus Movement A Yes Comments doing well, a few ctx.discus sed possible 39 week induction if makes it that far Flowsheet Date 07/02/2020 Koenig Score Blood Edema Fundus Height Fundus Units Glucose Ketones Leukocytes Nitrite Labor Signs Protein Cervic Dilation Cervic Effacement Cervic Station none 35 cm 3cm 50% -3 Type Weight in lbs Pre/Post Dialysis Refused With clothes 148.899183323619 BP Diastolic BP Location Tested BP Systolic BP Type 76 122 sitting Fetus Heart Rate Present A 134 Present Fetus Movement A Yes Comments doing well, cervix more favo rable (2-3 cm / 60%)will set up 39 week induction next week, COVID test this Wednesday Menstrual History Last Menstrual Date Menses Monthly On Bcp Conception Prior Menses Frequency Hcg Plus Date Menarche Onset Age 0410/07/2019 Genetic Screening And Infection History Question Response Note Patient's Age Will Be 35 Years Or Older At Estim ated Date of Delivery false Thalassemia (Maldivian, Egyptian, Mediterranean, Or Background): MCV < 80 false Neural Tube Defect (Meningomyelocele, Spina Bifi da, Or Anencephaly) false Congenital Heart Defect false Down Syndrome false Marck-Sachs (eg, Mandaen, Cajun, South Korean-Meigs) f alse Gayle Disease false Sickle Cell Disease Or Trait () false Hemophilia Or Other Blood Disorders false Muscular Dystrophy false Cystic Fibrosis false Gary's Chorea false Mental Retardation/Autism false If Yes, Was Person Tested For Fragile X? false Other Inherited Genetic Or Chromosomal Disorder false Maternal Metabolic Disorder (eg, Type 1 Diabetes , PKU) false Patient Or Baby's Father Had A Child With Defects Not Listed Above false Recurrent Loss, Or A Stillbirth false Medications (including Suppl ements, Vitamins, Herbs, OTC Drugs), Illicit/Recreational Drugs, Alcohol false If Yes, Agent(s) And Strength/Dosage false Any Other Genetic History false Live With Someone With TB Or Exposed To TB false Patient Or Partner Has History Of Genital Herpes false Rash Or Viral Illness Since Last Menstrual Perio d false History Of STD, Gonorrhea, Chlamydia, HPV, Syphi lis false Other Infection History false History of HIV false History of Hepatitis false Prior GBS-infected child false Delivery Information Delivery Date Delivery Type Labor Anesthesia Weeks Gestation Incision Type Labor Labor Length Hrs Delivered By Post Complications Tubal Sterilization Discharge Date Comments 1 Induce d Regional-Ep idural 39.2 [email or web address] false 07/10/2020 Discharge Information Feeding Method Contraceptive Method Maternal HG B and HCT Levels Bottle
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
--- OUTSIDE RECORDS SUMMARY | 2024-08-16 10:28 | XMS_ITS | Encounter Summary ---
Author Organization [facility] Address [address] [facility] [place] [address] Phone Care Team Providers Care Bander Operator Name Role Phone Shawn De La Torre MD Primary Care Provider [phone] Manuel Barahona MD Unavailable [phone] Hiral Boykin DO Primary Care Provider [phone] Reason for Referral * PT/OT/ST (Routine) - Authorized Specialty Diagnoses / Procedures Referred By Contac t Referred To Contact Physical Therapy Diagnoses Spondylosis without myelopathy or radiculopathy Caroline Christine APRN, CNP [address] [place] [address] Phone: tel: fax: [facility] [address] [address] Phone: tel: fax: Referral ID Status Reason Start Date Expiration Date V isits Requested Visits Authorized [id number] Authorized 05/10/2024 50 60 Scheduling Instructions [facility] Encounter Details Date Type Department Care Team (Latest Contact Info) Description 05/10/2024 Transcribe Orders [facility] [address] [place] [address] Caroline Christine APRN, CNP [address] [place] [address] 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 Never 12/28/2023 Do you belong to any clubs o r organizations such as catholic groups, unions, fraternal or athletic groups, or [...] and heating? Not hard at all 12/28/2023 [facility] of Occupat ional Health - Occupational Stress [...] place to sleep or slept in a residential (including now)? No 09/22/2023 Housing Stability Vital Sign Answer Carlos e Recorded In the last 12 months, was t here a time when you were not able to pay the mortgage or rent on time? No 12/28/2023 Number of Times Moved in the Last Year Not on fi le 12/28/2023 At any time in the past 12 m [facility], were you homeless or living in a residential (including now)? No 12/28/2023 Education Answer Date [...] on file Sexual Orientation Not on file documented as of this encounter Plan of Treatment Upcoming Encounters Date Type Department Care Team (Late st Contact Info) Description 09/11/2024 5:00 PM CDT [facility] [address] [place] [address] Radha Bansal APRN, OPTOMETRIC AIDE [address] [place] [address] Discharge Disposition: Discharged to home or Selfcare 11/07/2024 9:00 AM CDT Office Visit [facility] - Neurology - [place] [address] [place] [id number] Radha Bansal APRN, OPTOMETRIC AIDE [address] [place] [address] Scheduled Referrals Name Type Priority Associated Diagnoses Orde r Schedule PHYSICAL THERAPY REFERRAL Outpatient Referral Routine Spondylosis without myelopathy or radiculopathy Expected: 05/10/2024, Expires: 05/10/2025 documented as of this encounter Goals Goal Patient Goal Type Associated Problems Recent Progress Patient-Stated? Author Behavioral Health Behavioral Health Yes Agapito Campos PSYD Note: Patient will participate in a psychological assessment to determine whether she has a number of suspected conditions. documented as of this encounter Visit Diagnoses Diagnosis Spondylosis without myelopathy or radiculopathy- Primary Spondylosis of unspecified site without mention of myelopathy documented in this encounter Care Teams Bander Operator Relationship Specialty Start Date End Date Shawn De La Torre MD [address] [place] [address] PCP - General Family Medicine 04/17/22 06/04/24 Hiral Boykin DO [address] [place] [address] [place] [address] PCP - General Family Medicine 06/05/24 Manuel Barahona MD [address] [facility] , [address], [address] [place] [address] Consulting Physician Obstetrics & Gynecology 04/17/22 documented as of this encounter
--- OUTSIDE RECORDS SUMMARY | 2024-08-16 10:28 | XMS_ITS | Encounter Summary ---
Author Organization [facility] Address [address] [facility] [place] [address] Phone Care Team Providers Care Histology Technician Name Role Phone Manuel Barahona MD Unavailable [phone] Hiral Boykin DO Primary Care Provider + [phone] Encounter Details Date Type Department Care Team (Late st Contact Info) Description 08/07/2024 Results Follow-Up [facility] - Neurology [facility] [address] [place] [address] Radha Bansal, TOWER SWITCH OPERATOR, CHEMICAL WORKER [address] [place] [address] Social History Tobacco Use Types Packs/Day Years Used Date Smoking Tobacco: Never Smokeless Tobacco: Never Alcohol Use Standard Drinks/Week Comments Not Currently 0 (1 standard drink = 0.6 oz pur e alcohol) [facility] Utilities Answer Date Recorded In the past 12 months has [employer], gas, oil, or water [employer] threatened to shut off services in your [...] week 12/28/2023 How often do you attend [facility] or religion services? Never 12/28/2023 Do you belong to any clubs o r organizations such as taoism groups, unions, fraternal or athletic groups, or [...] and heating? Not hard at all 12/28/2023 [facility] of Occupat ional [facility] - Occupational Stress Questionnaire Answer Date Recorded [...] place to sleep or slept in a half-way (including now)? No 09/22/2023 Housing Stability Vital Sign Answer Carlos e Recorded In the last 12 months, was t here a time when you were not able to pay the mortgage or rent on time? No 12/28/2023 Number of Times Moved in the Last Year Not on fi le 12/28/2023 At any time in the past 12 m [facility], were you homeless or living in a half-way (including now)? No 12/28/2023 Education Answer Date [...] on file documented as of this encounter Progress Notes * Radha Bansal APRN, CNS - 08/07/2024 10:49 AM CST Please let Chinedu know that her magnesium is normal. NICAL IMPLEMENTATION LEAD documented in this encounter Plan of Treatment Upcoming Encounters Date Type Department Care Team (Late st Contact Info) Description 09/11/2024 5:00 PM CDT [facility] [address] [place] [address] Radha Bansal APRN, CNS [address] [place] [address] Discharge Disposition: Discharged to home or Selfcare 11/07/2024 9:00 AM CDT [facility] [address] [place] [address] Radha Bansal APRN, CHEMICAL WORKER [address] [place] [address] documented as of this encounter Goals Goal Patient Goal Type Associated Problems Recent Progress Patient-Stated? Author Behavioral Health Behavioral Health Yes Agapito Campos PSYD Note: Patient will participate in a psychological assessment to determine whether she has a number of suspected conditions. documented as of this encounter Visit Diagnoses Not on filedocumented in this encounter Care Teams Histology Technician Relationship Specialty Start Date End Date Hiral Boykin DO [address] [place] [address] [address] [place] [address] PCP - General Family Medicine 06/05/24 Manuel Barahona MD [address] [place] [address] [address], [address] [place] [address] Consulting Physician Obstetrics & Gynecology 04/17/22 documented as of this encounter
--- OUTSIDE RECORDS SUMMARY | 2024-08-16 10:28 | XMS_ITS | Referral Summary ---
Author Organization [facility] [address] [place] Address [address] [place] [phone] Care Team Providers Care Rehabilitation Team Lead Name Role Phone Unknown, Notinfile Primary Care Provider Unavail able Encounters Date Type Department Care Team Description 08/09/2024 2:30 PM COMMERCIAL DIRECTOR - 08/09/2024 4:58 PM [facility] Emergency [facility] Emergency Department [address] [place] [address] Migraine without status migrainosus, not intractable, unspecified migraine type (Primary Dx) Discharge Disposition: Discharge to home or self care from Last 3 Months Allergies No known active allergies Medications oxyCODONE-aceta [...] 05/23/2014 Vaginal delivery 37 weeks gestation of Immunizations Immunization Administration Dates Next Due MMR 07/02/2018(Deferred: Other - see comments) Tdap 07/02/2018 Social History Tobacco Use Types Packs/Day Years [...] on file Legal Sex Female 11:37 PM COMMERCIAL DIRECTOR Gender Identity Not on file Sexual Orientation Not on file Last Filed Vital Signs Vital Sign Reading Time Taken Comments Blood Pressure 105/68 08/09/2024 1:55 PM COMMERCIAL DIRECTOR Pulse 66 08/09/2024 1:55 PM COMMERCIAL DIRECTOR Temperature 36.7 C (98 F) 08/09/2024 1:55 PM COMMERCIAL DIRECTOR Respiratory Rate 16 08/09/2024 1:55 PM COMMERCIAL DIRECTOR Oxygen Saturation 100% 08/09/2024 1:55 PM COMMERCIAL DIRECTOR Inhaled Oxygen Concentration - - Weight 53.1 kg (117 lb) 08/09/2024 1:55 PM COMMERCIAL DIRECTOR Height 152.4 cm (5') 08/09/2024 1:55 PM COMMERCIAL DIRECTOR Body Mass Index 22.85 08/09/2024 1:55 PM COMMERCIAL DIRECTOR Plan of Treatment Not on file Procedures Procedure Name Priority Date/Time Associated Diagnosis Comments POCT HCG, URINE Routine 08/09/2024 3:44 PM COMMERCIAL DIRECTOR ECG 12-LEAD STAT 08/09/2024 2:51 PM COMMERCIAL DIRECTOR EGFR STAT 08/09/2024 2:14 PM COMMERCIAL DIRECTOR DIFFERENTIAL AUTO STAT 08/09/2024 2:1 4 PM COMMERCIAL DIRECTOR TROPONIN T HIGH-SENSITIVITY SERIES (BASELINE, 2HR, 4HR, 6HR) STAT 08/09/2024 2:14 PM COMMERCIAL DIRECTOR APTT STAT 08/09/2024 2:14 PM COMMERCIAL DIRECTOR PROTIME-INR STAT 08/09/2024 2:14 PM COMMERCIAL DIRECTOR COMPREHENSIVE METABOLIC PANEL STAT 08/09/2024 2:14 PM COMMERCIAL DIRECTOR CBC WITH AUTO DIFFERENTIAL STAT 08/09/2024 2:[address] STROKE PROTOCOL WO CONTRAST Critical/Life-T hreatening 08/09/2024 2:12 PM COMMERCIAL DIRECTOR HEPATITIS C ANTIBODY Routine 12/17/2017 12:26 PM CDT Encounter for supervision of other normal in first trimester from Last 3 Months or Most Recently Relevant to Health Maintenance Results * (ABNORMAL) POCT hCG, urine (08/09/2024 3:44 PM COMMERCIAL DIRECTOR) HCG, ur, POC Negative Negative Lot Number [id number] QC Backgroud Clear Acceptable QC Control Line Acceptable Urine 08/09/2024 3:44 PM COMMERCIAL DIRECTOR Quynh LOYD POINT OF CARE TEST ORDERA BLES Final Result * ECG 12 lead (08/09/2024 2:51 PM COMMERCIAL DIRECTOR) 08/09/2024 2:51 PM COMMERCIAL DIRECTOR Narrative [facility] - 08/09/2024 7:56 PM COMMERCIAL DIRECTOR Vent Rate: 53 bpm RR Interval: 1119 msec PA Interval: 151 msec QRS Duration: 81 msec QT Interval: 420 msec QTC Interval: 403 msec P-R-T [place]: 54 - 83 - 71 degrees IMPRESSION: SINUS BRADYCARDIA WITH SINUS ARRHYTHMIA BORDERLINE ECG Electronically Signed By: Cesar Newton MD Quynh LOYD ECG ORDERABLES Final Res ult [facility] * Troponin T high-sensitivity series (baseline, 2hr, 4hr, 6hr) (08/09/2024 2:14 PM COMMERCIAL DIRECTOR) Trop T hs <6 <=14 ng/L Comment: Interpretive Data For further hscTnT resources including the diagnostic algorithm and an aid in interpretation, copy and paste this link: https://nrl.testcatalog.org/show/hsTrop Current Interpretive Data last revised 2020. Blood 08/09/2024 2:14 PM COMMERCIAL DIRECTOR 08/09/2024 2:19 PM COMMERCIAL DIRECTOR Quynh LOYD LAB BLOOD ORDERABLES Trudy l Result [facility] ([place]) 1 [facility] [employer] [place] [address] * eGFR (08/09/2024 2:14 PM COMMERCIAL DIRECTOR) eGFR >90 >=60 mL/min/1. 73 m2 Comment: [...] of Race in Diagnosing Kidney Disease, JASN 202). The CKD-EPI equation should not be used for patients with unstable renal function and has not been validated in children and those over 70. Current interpretive data was last reviewed 2021. Blood 08/09/2024 2:14 PM COMMERCIAL DIRECTOR 08/09/2024 2:19 PM COMMERCIAL DIRECTOR Quynh LOYD LAB BLOOD ORDERABLES Trudy l Result [facility] ([place] 1 [facility] [employer] [place] [address] * (ABNORMAL) Differential, auto (08/09/2024 2:14 PM COMMERCIAL DIRECTOR) Neutrophil abs 5.0 1.5 - 6.5 K/cumm Imm gran abs 0.0 0.0 - 0.1 K/cumm [facility] ([place]) Lymphocyte abs 2.7 0.8 - 3.3 K/cumm [...] revised on 2017. Blood 08/09/2024 2:14 PM COMMERCIAL DIRECTOR 08/09/2024 2:19 PM COMMERCIAL DIRECTOR Quynh LOYD LAB BLOOD ORDERABLES Trudy l Result [facility] ([place] 1 [facility] [place] [address] * CBC with auto differential (08/09/2024 2:14 PM COMMERCIAL DIRECTOR) WBC 8.6 3.8 - 9.9 K/cumm Hgb 12.8 11.9 - 15.5 g/dL [facility] Hct 37.1 35.6 - 45.5 % [facility] Plt 322 150 - 400 K/cumm [facility] MPV 9.2 9.1 - 12.3 fL [facility] RBC 4.10 3.90 - 5.20 M/cumm [facility] MCV 90.5 81.3 - 96.4 fL [facility] MCH 31.2 27.1 - 33.3 pg [facility] MCHC 34.5 32.3 - 35.7 g/dL [facility] RDW CV 11.7 11.1 - 14.9 % [facility] RDW SD 38.7 35.7 - 48.1 fL [facility]) NRBC abs 0.00 0.00 - 0.01 K/cumm [facility] ([place]) Blood Venous blood specimen / Unknown 08/09/2024 2:14 PM COMMERCIAL DIRECTOR 08/09/2024 2:19 PM COMMERCIAL DIRECTOR Narrative [facility] - 08/09/2024 2:20 PM COMMERCIAL DIRECTOR Potential Stroke Patient Quynh LOYD LAB BLOOD ORDERABLES Trudy l Result [facility] ([place] 1 [facility] [place] [address] * aPTT (08/09/2024 2:14 PM COMMERCIAL DIRECTOR) aPTT 30 28 - 38 sec [facility] Comment: Interpretive Data Heparin therapeutic range: 66.0 - 100.0 seconds. Range based on correlation with therapeutic heparin activity range of 0.3 - 0.7 Units/mL. Current interpretive data was last revised on 2023. Blood Venous blood specimen / Unknown 08/09/2024 2:14 PM COMMERCIAL DIRECTOR 08/09/2024 2:19 PM COMMERCIAL DIRECTOR Narrative [facility] - 08/09/2024 2:31 PM COMMERCIAL DIRECTOR Potential stroke patient. Quynh LOYD LAB BLOOD ORDERABLES Trudy l Result Performing Organization Address [facility] Co de Phone Number [facility] 1 [facility] [place] [address] * (ABNORMAL) Protime-INR (08/09/2024 2:14 PM COMMERCIAL DIRECTOR) Pathologist [facility] PT 13.1(H) 9.7 - 13.0 sec [facility] INR 1.21(H) 0.90 - 1.20 [facility] Comment: Interpretive data Oral anticoagulant therapeutic ranges: Venous thromboembolism prophylaxis or treatment: 2.0-3.0 CARDIOLOGY Standard range: 2.0-3.0 High-intensity range: 2.5-3.5 Refer to indication-specific guidelines for appropriate target ranges for prosthetic heart valve replacement. Current interpretive data was last revised on 2019. Blood 08/09/2024 2:14 PM COMMERCIAL DIRECTOR 08/09/2024 2:19 PM COMMERCIAL DIRECTOR Quynh LOYD LAB BLOOD ORDERABLES Trudy l Result Performing Organization Address City/[facility] Co de Phone Number [facility] 1 [facility] [place] [address] * Comprehensive metabolic panel (08/09/2024 2:14 PM COMMERCIAL DIRECTOR) Sodium 135 135 - 145 mmol/L Potassium, pl 4.4 3.3 - 4.9 mmol/L [facility] Chloride 100 97 - 110 mmol/L [facility] CO2 24 22 - 32 mmol/L [facility] Anion gap 11 2 - 15 [...] blood specimen / Unknown 08/09/2024 2:14 PM COMMERCIAL DIRECTOR 08/09/2024 2:19 PM COMMERCIAL DIRECTOR Narrative [facility] - 08/09/2024 2:45 PM COMMERCIAL DIRECTOR Potential Stroke Patient us Quynh LOYD LAB BLOOD ORDERABLES Trudy green Result [facility] ([place] 1 [facility] [place] [address] * CT Stroke Head WO Contrast (08/09/2024 2:12 PM COMMERCIAL DIRECTOR) Anatomical Region Laterality Modality Head N/A Computed Tomogra phy 08/09/2024 2:16 PM COMMERCIAL DIRECTOR Narrative 08/09/2024 2:19 PM COMMERCIAL DIRECTOR EXAM DESCRIPTION: CT STROKE HEAD WO CONTRAST [...] Cristino Lee D.O. PS: PS Report ID: [id number] Reading Location: [id number] Procedure Note Cristino Lee, DO - 08/09/2024 [...] Cristino Lee D.O. PS: PS Report ID: [id number] Reading Location: [place] [address] us [address]YD IMG CT PROCEDURES Final R esult * Hepatitis C antibody (12/17/2017 12:26 PM CDT) Hep C Ab Negative Negative [facility] ([place]) Comment:Testing performed by : [facility], [address] [place] [address]., [id number] Blood specimen (specimen) 12/17/2017 12:26 PM CDT 12/17/2017 5:49 PM CDT Narrative [facility] ([place]) - 12/17/2017 6:57 PM CDT us Anne Maharaj NP LAB MICROBIOLOGY - GENERAL ORDER JESUS Final Result [facility] ([place]) 1 [facility] [place] [address] from Last 3 Months or Most Recently Relevant to Health Maintenance Insurance [employer] [facility] PLAN [facility] CHOICE PLUS [facility] HMO/PPO Address: [address] [address] [place] [address] [facility] Advance Directives For more information, please contact: [phone] * Full Code (Latest Code Status on [...] in case of cardiopulmonary arrest Care Teams Rehabilitation Team Lead Relationship Specialty Start Date End Date Unknown, Notinfile PCP - General 08/09/24
== END 2024-08-16 10:13 | disposition home or self-care (01) ==
PROVIDERS: Emergency Provider Nurse Practitioner
DX: J06.9 Acute upper respiratory infection, unspecified (principal)
CPT/HCPCS: 87081; 87880; 99213; G0463